=== PATIENT | male | born 1955 | race Caucasian/White ===

== ENCOUNTER 2024-01-05 01:00 | Observation (INO) | payer MEDICARE, OTHER, SELFPAY ==
[2024-01-04] MEDS: ATIVAN 1 MG IV (19:40)
[2024-01-04 19:49] LABS: Venous Blood Gas B.E. -8.4 mmol/L (-4 to +4); Venous Blood Gas HCO3 17.9 mmol/L (22-27); Venous Blood Gas O2 Sat % 61.2 %; Venous Blood Gas pCO2 39 mmHg (35-48); Venous Blood Gas pH 7.27 (7.32-7.43); Venous Blood Gas pO2 35 mmHg (30-50)
[2024-01-04 19:53] LABS: % Basophils 0.6 % (0-2); % Eosinophils 2.9 % (0-6); % Immature Granulocytes 0.6 % (0-0.5); % Lymphocytes 36.7 % (20.5-51.1); % Monocytes 7.4 % (1.7-9.3); % Neutrophils 51.8 % (42.2-75.2); Absolute Eosinophils 0.2 10^3/uL (0-0.7); Absolute Lymphocytes 2.4 10^3/uL (1.2-3.4); Absolute Monocytes 0.5 10^3/uL (0.1-0.6); Absolute Neutrophils 3.3 10^3/uL (1.4-6.5); Hematocrit 37.5 % (39.0-52.0); Hemoglobin 13.4 g/dL (13.0-18.0); Mean Corp Hgb Conc. 35.7 g/dL (33.0-37.0); Mean Corpuscular Hgb 33.2 pg (27.0-31.0); Mean Corpuscular Volume 92.8 fL (80.0-94.0); Mean Platelet Volume 10.6 fL (7.4-10.4); Nucleated Red Blood Cells % 0 % (-); Platelet Count 245 10^3/uL (130-400); Red Blood Cell Count 4.04 10^6/uL (4.70-6.10); Red Cell Dist. Width 12.9 % (11.5-14.5); White Blood Cell Count 6.5 10^3/uL (4.8-10.8)
[2024-01-04 20:00] VITALS: BP 116/72
[2024-01-04 20:08] LABS: ALT (SGPT) 25 U/L (0-50); AST (SGOT) 33 U/L (17-59); Acetaminophen < 10 ug/ml (10-30); Albumin 5.1 g/dl (3.5-5.0); Alkaline Phosphatase 130 U/L (38-126); Blood Urea Nitrogen 27 mg/dl (9-20); Calcium 10.1 mg/dl (8.4-10.2); Carbon Dioxide 15 mmol/L (22-30); Chloride 106 mmol/L (98-107); Creatine Phosphokinase 81 U/L (55-170); Glucose 174 mg/dl (70-99); Potassium 4.2 mmol/L (3.5-5.1); Salicylate < 1.0 mg/dl (2.0-20.0); Sodium 143 mmol/L (135-145); Total Bilirubin 0.7 mg/dl (0.2-1.3); eGFR > 60.00
[2024-01-04 20:11] LABS: Alcohol None Detected
[2024-01-04 20:13] LABS: Troponin I < 0.012 ng/ml
[2024-01-04 21:00] VITALS: BP 110/67
[2024-01-04 22:00] VITALS: BP 134/87
--- NOTE | 2024-01-04 22:07 | ED.GENMED ---
History of Present Illness
General
Chief Complaint: Change in Mental Status
Source: patient and ambulance crew
Exam Limitations: clinical condition
Time Seen by Provider: 01/04/24 19:35
Travel History
Have you had any contact with someone who has COVID-19?: Unable to Answer
Do you have any symptoms of coronavirus? Fever > 100 degrees, chills, cough, shortness of breath, sore throat, loss of taste or smell, muscle aches, or headache?: Unable to Answer
History of Present Illness
History of Present Illness:
68-year-old male who presents after his roommate noticed he was shaking and appeared to be seizing. He was facedown on the ground. EMS arrived and found him to be confused, combative and altered. He reportedly is normally able to converse and
make his needs known. The patient is unable to contribute to his own history. EMS did not find any further seizure activity. They did need to give him intramuscular Versed to calm him for travel. They thought they noticed a right dilated pupil
at some point
Past History
Past History
ED Past Medical History: Hypercholesterolemia, Psychiatric (Paranoid schizophrenia, major depressive disorder, Alzheimer's disease.), Other (problems with unstable gait) and Other (cholelithiasis)
ED Past Surgical History: Urological (TURP March 2023)
Social History
Tobacco: Smoker
Personal: Single
Living: assisted
Employment: Disabled
Family History
Family History: Other (Noncontributory)
Phy Exam
Physical Exam
Physical Exam:
CONSTITUTIONAL Patient somnolent but does open eyes to his name. ill-appearing. Vital signs reviewed. some L hand clinching.
HEAD atraumatic, normocephalic.
EYES eyelids normal to inspection, Pupils equally round and reactive to light (3mm b/l), Extraocular muscles intact, Conjunctiva normal, Sclera normal.
NECK normal range of motion, Trachea midline, no jugular venous distention.
RESPIRATORY CHEST No respiratory distress noted, Chest expansion equal, Bilateral breath sounds clear.
CARDIOVASCULAR regular and tachycardic.
ABDOMEN No distention.
BACK normal inspection, no obvious deformities
UPPER EXTREMITY range of motion normal, Motor strength normal, no cyanosis, no edema.
LOWER EXTREMITY range of motion normal, Motor strength normal, no cyanosis, no edema.
NEURO mumbling words, nonverbal, moves all extremities, some twitching of the left hand. Opens his eyes to his name and at times will attempt to follow commands but mostly combative
SKIN skin warm, dry, and normal in color.
Course
Orders/Labs/Results
Orders:
Orders
01/04/24 19:35
CT Head W/o Iv Contrast Urgent
Comment:
Reason For Exam: seizure, change in ms
Cardiac Monitoring- Treatment ONCE
01/04/24 19:36
Electrocardiogram (*1) Stat
Reason for Study: Other
Other Reason for Exam: neuro symptoms
EKG- Treatment ONCE
01/04/24 19:39
Lorazepam [Ativan] 2 mg .ROUTE .STK-MED ONE
01/04/24 19:42
Acetaminophen Urgent
Alcohol Urgent
CPK [Creatine Phosphokinase] Urgent
Complete Blood Count/With Diff Urgent
Comprehensive Metabolic Panel Urgent
Salicylate Urgent
Troponin I Urgent
Venous Blood Gas Urgent
%Oxygen/Room Air: RA
01/04/24 19:46
Lorazepam [Ativan] 1 mg IM NOW STA
01/04/24 19:48
Lorazepam [Ativan] 1 mg IV NOW STA
01/04/24 19:53
Restraints - Violent As Directed
Restraint Type-: Soft Limb-L&R Wrist/4rail
Apply From (date): 01/04/24
Apply from (time): 19:45
Remove (date): 01/04/24
Remove (time): 23:53
Abnormal Lab Results
01/04/24
19:42
RBC 4.04 L 10^6/uL
(4.70-6.10)
Hct 37.5 L %
(39.0-52.0)
MCH 33.2 H pg
(27.0-31.0)
MPV 10.6 H fL
(7.4-10.4)
Immature Gran % 0.6 H %
(0-0.5)
VBG pH 7.27 L
(7.32-7.43)
VBG HCO3 17.9 L mmol/L
(22-27)
Carbon Dioxide 15 L mmol/L
(22-30)
BUN 27 H mg/dl
(9-20)
Glucose 174 H mg/dl
(70-99)
Alkaline Phosphatase 130 H U/L
(38-126)
Albumin 5.1 H g/dl
(3.5-5.0)
Salicylates < 1.0 L mg/dl
(2.0-20.0)
Acetaminophen < 10 L ug/ml
(10-30)
01/04/24 19:42
01/04/24 19:42
Vital Signs
Initial and Last Documented VS:
Initial Vital Signs
Pulse Resp Pulse Ox
122 22 93
01/04/24 19:35 01/04/24 19:35 01/04/24 19:35
Last Documented Vital Signs
Temp Pulse Resp BP Pulse Ox
97.4 F 97 18 110/67 93
01/04/24 19:45 01/04/24 21:00 01/04/24 21:00 01/04/24 21:00 01/04/24 21:00
MDM/Problems Addressed
MDM/Problems Addressed:
Suspected seizure, prolonged postictal state
*Radiology
Radiology exam reviewed: preliminary read by ED provider (No obvious bleeding) and radiology read reviewed
*Pulse Oximetry
Patient hypoxic: no
*EKG
Interpreted by ED Provider?: Yes
Interpretation: abnormal
Rate: tachycardiac
Rhythm: sinus
QRS Pattern: right bundle branch block (incomplete)
Ischemia: non-specific ST changes
*[employer] Interpretation
Rate: tachycardiac
Interpretation: abnormal
Rhythm: sinus
*Critical Care Note
Total Time (30-74mins, 75-104mins- exclusive of procedures): 30 minutes
Data Reviewed
Review of Other/Old Records Reveals: Discharge Summary (from 05/14)
Source: patient
Patient Management
Discussion with other providers: Hospitalist
Escalation/DeEscalation of care consider admission/obs:
68-year-old male who presents after possible seizure. For approximately 30 to 45 minutes, the patient was altered and combative. On reassessment he is more calm and more conversant. He is now awake and alert. Question whether this was a
prolonged postictal phase. No history of seizures. Admit for close monitoring
ED Attending Note
-
Portions of this chart may have been created with voice recognition software.� Occasional wrong word or��sound alike� substitutions may have occurred due to the inherent limitations of voice recognition software.
Discharge Plan
Departure
Patient Disposition: Admit
Date of Disposition: 01/04/24
Time of Disposition: 22:18
Admit to: Telemetry
Presentation/result/management discussed w/ accepting MD/DO: Hospitalist
Discharge Problem:
possible seizure, prolonged postictal phase
Prescriptions:
No Action
gemfibrozil 600 MG tablet
600 mg PO BID@0800,1730
albuterol sulfate 1 PUFF HFA aerosol inhaler
2 puff inhalation R BIDPRN PRN (Reason: SOB)
dexlansoprazole [Dexilant] 30 MG capsule,biphase delayed releas
30 mg PO DAILY@0600
acetaminophen 325 MG tablet
650 mg PO Q4HPRN MDD 3000MG PRN (Reason: MILD PAIN/FEVER)
aspirin 81 MG tablet,delayed release (DR/EC)
81 mg PO DAILY
bisacodyl [OneLAX Bisacodyl] 10 MG suppository
10 mg [place] DAILYPRN PRN (Reason: if mom is ineffective after 24hrs)
docusate sodium 100 MG capsule
100 mg PO DAILY
clozapine 25 MG tablet
75 mg PO TID@0800,1200,1600
cholecalciferol (vitamin D3) [Vitamin D3] 400 UNITS tablet
400 units PO DAILY
tiotropium bromide [Spiriva with HandiHaler] 18 MCG capsule, w/inhalation device
1 puff inhalation R DAILY
Patient Comments:
HANDIHALER CAPSULE DEVICE
levothyroxine [Synthroid] 25 mcg Tablet
25 mcg PO DAILY@0600
calcium carbonate 400 mg calcium (1,000 mg) Tablet,Chewable
400 mg PO Q8HPRN PRN (Reason: gas)
lamotrigine 200 mg Tablet
200 mg PO DAILY
polyethylene glycol 3350 [HealthyLax] 17 gram Powder In Packet
17 g PO DAILY Qty: 30 0RF
sennosides-docusate sodium [Senna-S] 8.6-50 mg Tablet
2 tab-cap PO HS
Fleet Enema 19-7 gram/118 mL Enema
118 ml VA DAILYPRN PRN (Reason: if dulcolax is ineffective after 24hrs)
Referrals:
John Walters I., DO [Family Provider] -
Interventions
Interventions:
*Risk Screen - Suicide Last Done: 01/04/24 19:36
*General Assessment Last Done: 01/04/24 19:36
*Neglect/Abuse Screening Last Done: 01/04/24 19:36
*ED COVID-19 Vaccine History Last Done: 01/04/24 19:36
ED- Cardiac Assessment Last Done: 01/04/24 19:49
ED- Neurological Assessment Last Done: 01/04/24 19:49
ED- Pulmonary Assessment Last Done: 01/04/24 19:49
ED Swallowing Screen Last Done: 01/04/24 21:07
Discharge Date and Time
Print Language: ROMANIAN
[2024-01-04 22:23] LABS: Urine Albumin Trace (Neg - Trace); Urine Bilirubin Negative (Negative); Urine Character Clear (Clear); Urine Color Yellow; Urine Glucose Negative (Negative); Urine Ketone Negative (Negative); Urine Leukocyte Negative (Negative); Urine Nitrite Negative (Negative); Urine Occult Blood Negative (Negative); Urine Specific Gravity 1.025 (<1.030); Urine Urobilinogen Negative (Neg - 1+)
[2024-01-04 22:55] VITALS: BP 134/87
[2024-01-04 23:00] VITALS: BP 118/74
[2024-01-05] VITALS (11 sets, daily range): BP systolic 100–138; BP diastolic 69–85; PULSE 87–97; O2SAT 95; BMI 19.9
--- NOTE | 2024-01-05 00:36 | HPS.HSE ---
Family Physician
-
Family Physician: John Walters
Chief Complaint
-
Unresponsive
History of Present Illness
Patient is a 68y M with PMH significant for paranoid schizophrenia, COPD and GERD who presents to ED for evaluation of suspected seizure activity. History obtained from patient and from ED staff. Patient has no recollection of events leading up
to his hospitalization. He states that he 'came to' here in the ED. He actually has multiple concerns at present - most of which sound chronic / unrelated to his presentation. Patient was reportedly noted to be face down on the floor in his room
today by his roommate. He was reportedly 'shaking'.
EMS was called and patient was transported to the ED for further evaluation. He was described as 'unresponsive' and potential post-ictal state was suspected; however, at other times he was apparently combative and required IM Versed 'to calm him'
in the ambulance and originally was in restraints here in the ED.
At present he is resting comfortably and is not anxious or agitated.
He denies any prior history of seizure activity. He does not believe that he is on any new medications.
He has chronic complaints related to going to the bathroom and feels that he is not able to completely empty either his bowel or bladder. He notes that he has a BM every day, but apparently he feels that 3-4 bowel movements per day would be more
appropriate.
Medical History
Past Medical History
Past Medical History: Reports Other
Additional Past Medical History:
Paranoid Schizophrenia
GERD
COPD
Chronic Constipation
Hypothyroidism
Past Surgical History: Reports Other
Additional Past Surgical History:
TURP
Social History
Tobacco: Smoker
Alcohol: None
Drug: None
Living: Custodial
Family History
Family History: Not pertinent
Allergies / Home Medications
Allergies reflects when Allergies were last updated in [facility].
Home Medications with original date entered in [facility]
Allergy/Medication List:
Allergies
Allergy/AdvReac Type Severity Reaction Status Date / Time
No Known Allergies Allergy Verified 04/26/23 02:02
Home Medications
albuterol sulfate 90 mcg/actuation aerosol inhaler 2 puff inhalation R BIDPRN PRN SOB 01/03/19
dexlansoprazole 30 mg capsule,biphase delayed release (Dexilant) 30 mg PO DAILY@0600 Gastrointestinal issue 01/03/19
gemfibrozil 600 mg tablet 600 mg PO BID@0800,1730 High cholesterol 01/03/19
acetaminophen 325 mg tablet 650 mg PO Q4HPRN PRN MILD PAIN/FEVER 09/22/20
aspirin 81 mg tablet,delayed release 81 mg PO DAILY Blood clot prevention/tx 09/22/20
bisacodyl 10 mg rectal suppository (OneLAX Bisacodyl) 10 mg NV DAILYPRN PRN if mom is ineffective after 24hrs 09/22/20
cholecalciferol (vitamin D3) 10 mcg (400 unit) tablet (Vitamin D3) 400 units PO DAILY Supplement 09/22/20
clozapine 25 mg tablet 75 mg PO TID@0800,1200,1600 Mental Health/Anxiety 09/22/20
docusate sodium 100 mg capsule 100 mg PO DAILY Constipation 09/22/20
tiotropium bromide 18 mcg capsule with inhalation device (Spiriva with HandiHaler) 1 puff inhalation R DAILY Lung/breathing issues 09/22/20
calcium carbonate 400 mg PO Q8HPRN PRN gas 03/25/23
levothyroxine 25 mcg tablet (Synthroid) 25 mcg PO DAILY@0600 Thyroid 03/25/23
lamotrigine 200 mg tablet 200 mg PO DAILY Neurological Condition 04/26/23
polyethylene glycol 3350 17 gram oral powder packet (HealthyLax) 17 g PO DAILY #30 ea 05/02/23
sennosides 8.6 mg-docusate sodium 50 mg tablet (Senna-S) 2 tab-cap PO HS 01/04/24
sodium phosphates 19 gram-7 gram/118 mL enema (Fleet Enema) 118 ml NV DAILYPRN PRN if dulcolax is ineffective after 24hrs 01/04/24
Review of Systems
-
History Source: Patient
A 12 point ROS was completed and negative except as noted: Yes
Constitutional: Denies Fever or Chills
Respiratory: Denies Cough or Trouble Breathing
Cardiac: Denies Chest Pain or Palpitations
Abdomen/GI: Reports Constipated; Denies Abdominal Pain, Nausea, Vomiting, Bloody Stools, Black Stools or Anorexia
: Reports Difficulty Voiding; Denies Dysuria, Frequency or Flank Pain
Musculoskeletal: Denies Joint Pain or Edema
Neurological: Denies Dizzy or Headache
Physical Exam
Vital Signs
Vital Signs
Temp Pulse Resp BP Pulse Ox
98.3 F 96 21 119/76 95
01/04/24 22:55 01/05/24 00:16 01/05/24 00:16 01/05/24 00:00 01/05/24 00:20
Physical Exam
General: Other (68y M in no acute distress.)
HEENT: Moist mucous membranes and PERRLA
Respiratory: Clear; No Wheezes, Rales or Rhonchi
Cardiac: S1/S2 and Regular Rhythm; No Murmur
GI: Soft, Non Tender, Non Distended and Normal Bowel Sounds
Musculoskeletal: No Clubbing, No Cyanosis and No Edema
Neuro: AO x 3 and Nonfocal/grossly intact
Laboratory Results
-
01/04/24 19:42
01/04/24 19:42
Laboratory Results
Total Bilirubin 0.7 mg/dl (0.2-1.3) 01/04/24 19:42
AST 33 U/L (17-59) 01/04/24 19:42
ALT 25 U/L (0-50) 01/04/24 19:42
Alkaline Phosphatase 130 U/L (38-126) H 01/04/24 19:42
Troponin I < 0.012 ng/ml 01/04/24 19:42
Impression/Plan
-
A/P: Patient is a 68y M with PMH significant for paranoid schizophrenia, hypothyroidism and GERD who presents to ED for evaluation of unresponsive episode / possible seizure activity.
Seizure Activity
Anion Gap Metabolic Acidosis
- Observe overnight for further evaluation and treatment.
- Seems likely that a seizure occurred based on history and accompanying lab abnormalities.
- Monitor on tele overnight.
- Ativan PRN any additional seizure activity.
- Neuro eval, MRI, EEG in AM.
- No apparent new med[facility].
- Patient denies any prior history of seizure.
- If recurrent episodes, would likely begin AEDs.
Paranoid Schizophrenia
- Stable. Continue current psychotropic med regimen.
- Per [facility], no new meds or recent dose changes.
- Follow for any new issues / mood changes / etc.
- Suspect that many of his chronic med issues are related to / amplified by his mental health issues.
Chronic Constipation
- As noted above. Does not sound that patient is truly constipated.
- Continue current bowel regimen and follow for any changes.
Hypothyroidism
- Continue current T4 replacement and update TFTs.
COPD
- Stable. No wheezing on exam. No complaints of dyspnea.
- Continue Spiriva and PRN albuterol.
BPH
- Bladder scan protocol.
DVT Prophylaxis: SCDs
Code Status: Full
--- NOTE | 2024-01-05 02:13 | PTCARENOTE ---
Received from the ED via stretcher, pt is a standby assist, mildly unsteady on his feet. Pt is AAOx3, does not recall the events that led him in to the hospital. Pt with a hx of schizophrenia; impulsive and uncooperative @ times, but able to be
redirected, talks to himself frequently. Bed alarm in place for safety. Pt is a poor historian, admission obtained from [place] paperwork. Pt oriented to unit and call jarrett, plan for MRI in the AM and NPO status discussed. Pt resting comfortably in bed.
[2024-01-05 05:25] LABS: Hematocrit 34.9 % (39.0-52.0); Hemoglobin 12.6 g/dL (13.0-18.0); Mean Corp Hgb Conc. 36.1 g/dL (33.0-37.0); Mean Corpuscular Volume 91.4 fL (80.0-94.0); Mean Platelet Volume 10.6 fL (7.4-10.4); Platelet Count 220 10^3/uL (130-400); Red Blood Cell Count 3.82 10^6/uL (4.70-6.10); Red Cell Dist. Width 12.7 % (11.5-14.5); White Blood Cell Count 8.7 10^3/uL (4.8-10.8)
[2024-01-05 06:00] LABS: Blood Urea Nitrogen 30 mg/dl (9-20); Calcium 9.9 mg/dl (8.4-10.2); Carbon Dioxide 18 mmol/L (22-30); Chloride 110 mmol/L (98-107); Estimated Creatinine Clearance 76 ml/min; Glucose 98 mg/dl (70-99); Potassium 3.6 mmol/L (3.5-5.1); Sodium 142 mmol/L (135-145); eGFR > 60.00
[2024-01-05 06:27] LABS: TSH Reflex To Free T4 3.29 uIU/ml (0.47-4.68)
[2024-01-05] MEDS: SYNTHROID 25 MCG PO (06:36)
[2024-01-05] MEDS: SPIRIVA RESPIMAT 2.5 MCG 2 PUFF INH (08:08)
--- NOTE | 2024-01-05 08:15 | CON.NEURO4 ---
Addendum entered and electronically signed by Nestor Dinh MD 01/05/24 12:44:
I saw and evaluate the patient I reviewed the note by Johanna Gomez agree with the findings of following comments:
68-year-old male with a past medical history of undifferentiated schizophrenia, cognitive dysfunction, hyperlipidemia, COPD and hypothyroidism who presented to hospital with episode of abnormal movement and mental status concerning for potential
generalized seizure. This had been observed by patient's roommate he had been found laying face down in his room by roommate with convulsive movements which spontaneously abated, afterwards he was confused with some agitation and did require some
benzodiazepines as well as ER.
Patient does not recall the events of yesterday he does deny after having had a seizure in his life with no family history of seizures as well. He denies any recreational use of drugs or any alcohol use. He reports being on Clazuril since the
.
He has had evaluation by psychiatry before he was taken off Perphenazine. He has had evaluation by neurology previously, was felt to have some dyskinetic movements due to history of antipsychotics, eventually had neuropsychological testing who felt
that he did not have Alzheimer's dementia but rather cognitive changes and executive dysfunction from history of schizophrenia. Has had previous levels of Clazuril here in our hospital which were in therapeutic range.
General examination shows a patient who is in no distress no signs of head or neck trauma no tongue laceration, mildly disheveled with thin appearing body habitus
Neurologic examination shows no overt hallucinations or responding to internal stimuli his speech is of normal pace and is fluent, comprehension is intact, decreased recall of recent events as well as his past medical history is apparent, no
abnormalities of the cranial nerves, no significant rigidity seen in the limbs.
CT head noncontrast no remarkable features
EEG is normal.
Assessment: Fair likelihood of a generalized seizure, it appears to be the first seizure ever in this patient. Differential diagnosis would include convulsive syncope or less likely nonepileptic psychogenic seizure . Patient is on clozapine which
does result in a small but real increased risk of seizure, he is on a relatively low dose but did have therapeutic levels on most recent blood testing levels. No history of previous seizure and CT head not showing any significant structural
abnormalities. No infectious or metabolic abnormalities are present that would predispose to seizure. Benign cause of pain does present a challenge as coming off of it would risk reemergence of psychotic symptoms.
Recommendations
-Would prefer to increase the existing dose of lamotrigine which may offer better protection against seizure rather than brand-name seizure medication for the patient
--- Increase lamotrigine to 250 mg once daily
-Would continue the existing dose of Clozapine
-Check blood levels of lamotrigine as well as clozapine as well as clozapine metabolites
-If further seizures occur then would need to have serious reconsideration of decreasing the dose of clozapine or switching to a different antipsychotic medication
-Would make patient's psychiatrist or prescribing physician aware of suspected seizure
-With a normal CT head noncontrast and neurologic examination remarkable for only has baseline issues of cognitive impairment/executive dysfunction and history of schizophrenia I do not feel he would necessarily require inpatient brain MRI as it is
extremely unlikely to change any of our management here
-Will need outpatient neurology and psychiatry following
Original Note:
Consultation - Neurology 4
-
CONSULTING PHYSICIAN: Madeline Dinh MD
REFERRING PHYSICIAN: Hospitalists/Dr. Negro
DICTATED BY: SOHEILA Foote
DATE/TIME OF REQUEST: 01/04/24
DATE/TIME OF CONSULTATION: 01/05/24
Reason for Consultation: Seizure
History of Present Illness:
This is a 68-year-old male with a PMH of schizophrenia, memory loss, ambulatory dysfunction, BPH, HLD, COPD, and hypothyroidism who has presented to the hospital on 01/04/24 with report of seizure. Patient was previously followed as an outpatient by
our Neurology service for memory issues and movement disorder by Dr. Chen and Dr. Lundy, but he has not had an office visit since 2020.
From previous evaluation by Dr. Chen on an unclear date, as quoted in Dr. Lundy's OV note on 04/24/21:
''From previous encounters, when seen by Dr. Chen:�������
'This is a 66 years old gentleman presented for evaluation of gait difficulty. Patient was referred by Dr. Latonia Lundy.������
Patient reported that he might have mild gait difficulty with knee pain in the past. However he denies difficulty with gait or balance recently. Patient also denies difficulty with balance and he has had no falls recently. Patient is poor with
historian due to long history of psychiatric disease. Part of the history was collected with patient caregiver director and confirmed that that patient has no gait difficulties at his facilities currently. He reported that he has tremor in his hands
when he is in stress and anxious. He denies tremor when he is relaxed.�������Patient reported that his main issues is memory loss. He reported that he has both short-term and long-term memory difficulties. He is not able to remember the conversation
and tasks. He has to keep taking notes. At his last visit with Dr. Lundy, he was suggested dementia workup with labs, brain MRI and neuropsych evaluation. However none of them were performed. He denies hallucinations.�������
No history of head trauma or seizure. No family history of AD or dementia. No change in personality. He hs a history of depression, paranoid schizophrenia and bipolar disorder.�������
He had a head CT done at [facility] in March 2017, his most recent imaging that we had available for review, which showed no significant focal findings. '������
01/21/21: MRI brain showed mild to moderate diffuse atrophy with minimal white matter hyperintensities likely due to small vessel ischemic disease. His aide states that he often exhibits repetitive behaviors--washing his hands continually, going in
and out of the bathroom but not using it, etc. He is at times aggressive and agitated. He carries around a miror with him 'so he can look at himself to see if he's standing up.' The patient complains of ongoing memory loss. He does not recall having
his MRI done. He saw Dr. Chen since I saw him last who felt he does not have PD or any other movement disorder.''
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
Patient is unable to recall the events of yesterday, therefore some of this information is obtained from medical records. He reports feeling well the past few days and denies any recent illness, fevers, or GI symptoms. [facility]
and reports that nursing staff administers his medications and he has been taking them regularly. He reports being on Clozaril since about 1989, he cannot recall how long he has been taking lamotrigine but he is taking this for mental health
reasons. Yesterday (01/04/24), patient was found in his room lying face-down on the ground with whole-body shaking by his roommate. EMS were called and patient was noted to be confused and combative but no further seizure activity was noted. He
received IM Versed en route to the ER due to agitation. CT head was obtained on arrival in the ER and is negative for any acute abnormalities. Blood work is significant for metabolic acidosis. There was no tongue biting, or incontinence of
bowel/bladder observed. Today (01/05/24), patient reports feeling drowsy but otherwise feels in his usual state. He denies any headache, dizziness, vision changes, speech/swallow difficulty, numbness, weakness, nausea, chest pain, palpitations, and
shortness of breath. He denies any history of head/neck trauma or seizure.
Past Medical History: Paranoid schizophrenia, bipolar disorder, major depression, memory loss, ambulatory dysfunction, COPD, BPH, HLD, GERD, hypothyroidism
Surgical History: TURP
Family History: Sibling- brain tumor. Denies any family history of seizure.
Social History: Former smoker. Denies alcohol and illicit drug use.
Allergies: No known allergies.
Home Medications: See below.
Review of Symptoms:
Patient denies any fever, headache, chest pain, shortness of breath, GI or symptoms.
�Per the HPI.�All systems are reviewed negative except above.
Physical Exam:
The patient is afebrile, abdomen is nondistended, breathing is unlabored, skin is warm and dry, no edema.
Neurologic Examination:
The patient is drowsy. He opens eyes to voice. Oriented x 3. He is able to follow commands and answer questions appropriately. There is no aphasia or dysarthria. On cranial nerve assessment, pupils are 1 mm bilateral, round and nonreactive to light
and accommodation. Visual massey are full. Extraocular movements are intact. Facial sensations are intact and bilaterally symmetrical, there is no facial asymmetry. Hearing is diminished bilaterally to normal conversation volume. Tongue palate and
uvula are midline. There is no tongue laceration. Sternocleidomastoid strengths are full bilaterally. Motor strengths are 5/5 bilateral upper and lower extremities on medical research Sears scale. There is no drift. There is a low amplitude semi
rhythmic tremor in the distal RUE with exertion. Deep tendon reflexes are 2+ bilateral upper and lower extremities and Babinski is absent bilaterally. Coordination is intact by finger to nose bilaterally.
Lab Results: See below.
Neuro Imaging:
1. CT Head 01/04/24:
2. EEG 01/05/24: This EEG is normal during the awake and drowsy states as well as during the activation procedure of photic stimulation. No seizures were noted during the recording. The study was limited by movement and muscle artifact at times,
during which time epileptiform abnormalities cannot be definitively ruled out.
3. MRI brain 12/01/20: No evidence of acute intracranial abnormality.
Differentials for the patient's presentation include:
1. New onset generalized seizure without status epilepticus, well-controlled. Unclear etiology, Clozaril is associated with a very slight seizure risk.
Patient has the following risk factors for their symptoms: Clozaril
Recommendations:
-Lamotrigine and Clozaril levels pending.
-Home lamotrigine 200mg daily increased to 250mg daily.
-Do not see a role for MRI brain imaging at this point, can obtain this as an outpatient if needed.
-If further seizures occur, can consider adjusting schizophrenia medications at that time, but for now would continue chronic Cloazaril.
-DVT prophylaxis.
-Seizure precautions.
-PT/OT evaluations.
Discussed patient care with: Dr. Dinh, the patient
Vital Signs and Labs
-
Vital Signs and Labs:
Vital Signs
Temp Pulse Resp BP Pulse Ox
98 F 76 14 131/75 97
01/05/24 07:50 01/05/24 08:11 01/05/24 08:11 01/05/24 07:50 01/05/24 08:11
Lab Results
01/05/24 04:57
01/05/24 04:57
Sodium 142 mmol/L (135-145) 01/05/24 04:57
Potassium 3.6 mmol/L (3.5-5.1) 01/05/24 04:57
BUN 30 mg/dl (9-20) H 01/05/24 04:57
Glucose 98 mg/dl (70-99) 01/05/24 04:57
Calcium 9.9 mg/dl (8.4-10.2) 01/05/24 04:57
Medications
-
Active Medications
Generic Name Dose Route Start Last Admin
Trade Name Freq PRN Reason Stop Dose Admin
Acetaminophen 650 mg 01/05/24 01:14
Acetaminophen 325 Mg Tablet PO 02/02/24 01:13
Q4HPRN PRN
Mild Pain / Temp > 101
Albuterol Sulfate 2.5 mg 01/05/24 01:14
Albuterol Nebs 2.5 Mg/3 Ml Ampul INH
R Q4HPRN PRN
shortness of breath
Protocol
Clozapine 75 mg 01/05/24 08:00 01/05/24 09:19
Clozapine 25 Mg Tablet PO 02/02/24 07:59 75 mg
TID@0800,1200,1600 LEONARDO Administration
Docusate Sodium 100 mg 01/05/24 08:00 01/05/24 09:13
Docusate Sodium 100 Mg Capsule PO 02/02/24 07:59 100 mg
BID LEONARDO Administration
Lamotrigine 250 mg 01/06/24 08:00
Lamotrigine 100 Mg Tablet PO 02/03/24 07:59
DAILY LEONARDO
Levothyroxine Sodium 25 mcg 01/05/24 06:00 01/05/24 06:36
Levothyroxine 25 Mcg Tablet PO 02/02/24 05:59 25 mcg
DAILY@0600 LEONARDO Administration
Lorazepam 1 mg 01/05/24 01:14
Lorazepam 2 Mg/Ml Vial IV 02/02/24 01:13
Q4HPRN PRN
Seizure activity
Pantoprazole Sodium 40 mg 01/05/24 08:00 01/05/24 09:12
Pantoprazole 40 Mg Delayed Release Tablet PO 02/02/24 07:59 40 mg
DAILY LEONARDO Administration
Polyethylene Glycol 17 grams 01/05/24 08:00 01/05/24 09:13
Polyethylene Glycol Powder 17 Grams Packet PO 02/02/24 07:59 17 grams
DAILY LEONARDO Administration
Sennosides 17.2 mg 01/05/24 22:00
Sennosides (Senokot) 8.6 Mg Tablet PO 02/02/24 21:59
HS LEONARDO
Sodium Chloride 0 flush 01/05/24 02:00
Sodium Chloride 0.9% (Flush) Syringe IV 02/02/24 01:59
PER PROTOCOL LEONARDO
Tiotropium Galloway 2 puff 01/05/24 08:00 01/05/24 08:08
Tiotropium (Spiriva Respimat) 2.5 Mcg Inhaler INH 02/02/24 07:59 2 puff
R DAILY LEONARDO Administration
Home Medications
�Medication �Instructions �Recorded
albuterol sulfate 90 mcg/actuation 2 puff inhalation R BIDPRN PRN SOB 01/03/19
aerosol inhaler
dexlansoprazole 30 mg 30 mg PO DAILY@0600 01/03/19
capsule,biphase delayed release Gastrointestinal issue
(Dexilant)
gemfibrozil 600 mg tablet 600 mg PO BID@0800,1730 High 01/03/19
cholesterol
acetaminophen 325 mg tablet 650 mg PO Q4HPRN PRN MILD 09/22/20
PAIN/FEVER
aspirin 81 mg tablet,delayed 81 mg PO DAILY Blood clot 09/22/20
release prevention/tx
bisacodyl 10 mg rectal suppository 10 mg ID DAILYPRN PRN if mom is 09/22/20
(OneLAX Bisacodyl) ineffective after 24hrs
cholecalciferol (vitamin D3) 10 400 units PO DAILY Supplement 09/22/20
mcg (400 unit) tablet (Vitamin D3)
clozapine 25 mg tablet 75 mg PO TID@0800,1200,1600 Mental 09/22/20
Health/Anxiety
docusate sodium 100 mg capsule 100 mg PO DAILY Constipation 09/22/20
tiotropium bromide 18 mcg capsule 1 puff inhalation R DAILY 09/22/20
with inhalation device (Spiriva Lung/breathing issues
with HandiHaler)
calcium carbonate 400 mg PO Q8HPRN PRN gas 03/25/23
levothyroxine 25 mcg tablet 25 mcg PO DAILY@0600 Thyroid 03/25/23
(Synthroid)
lamotrigine 200 mg tablet 200 mg PO DAILY Neurological 04/26/23
Condition
polyethylene glycol 3350 17 gram 17 g PO DAILY #30 ea 05/02/23
oral powder packet (HealthyLax)
sennosides 8.6 mg-docusate sodium 2 tab-cap PO HS constipation 01/04/24
50 mg tablet (Senna-S)
sodium phosphates 19 gram-7 118 ml ID DAILYPRN PRN if dulcolax 01/04/24
gram/118 mL enema (Fleet Enema) is ineffective after 24hrs
[2024-01-05] MEDS: PROTONIX 40 MG PO (09:12)
[2024-01-05] MEDS: LAMICTAL 200 MG PO (09:13)
[2024-01-05] MEDS: MIRALAX 17 GRAMS PO (09:13)
[2024-01-05] MEDS: COLACE 100 MG PO ×2 (09:13→20:37)
[2024-01-05] MEDS: CLOZARIL 75 MG PO ×3 (09:19→17:09)
--- NOTE | 2024-01-05 09:47 | EEG.RPT ---
Electroencephalogram Report
Recording
Date of EE01/05/24
Type of EEG: Routine
Length of EEG recordin minutes
Done with Video Recording: Yes
Patient Status: Inpatient
Recording Conditions: Awake and Drowsy
Hyperventilation Performed: No
Photic Stimulation Performed: Yes
Report
METHODS
A 21 channel digitized electroencephalogram was performed at [facility]. The 10/20 international system of electrode placement was used. In addition to EEG, the patient was monitored for EKG. The duration of the recording was 30 minutes.
BACKGROUND
During the awake state, with the eyes closed, the background consisted of a normal amplitude, 9 Hertz posterior reactive rhythm that attenuated appropriately with eye opening. Beta activity was distributed diffusely with an anterior predominance.
There was a normal anterior-posterior voltage gradient. With eye opening the background activity changed to a low voltage mixture of alpha, beta, and occasional theta range frequencies. There were no significant asymmetries of background activity
noted.
SLEEP
Stage II sleep was not obtained but the patient did become drowsy.
HYPERVENTILATION
Hyperventilation was not performed.
PHOTIC STIMULATION
Photic stimulation using a step-marks increase in photic frequency varying from 1-31 Hertz resulted in no driving responses but no appearance of abnormal activity.
ABNORMAL EEG ACTIVITY
None
CLINICAL EVENTS
None
INTERPRETATION AND CLINICAL CORRELATION
This EEG is normal during the awake and drowsy states as well as during the activation procedure of photic stimulation. No seizures were noted during the recording. The study was limited by movement and muscle artifact at times, during which time
epileptiform abnormalities cannot be definitively ruled out. A normal EEG, in itself, does not rule out a diagnosis of epilepsy. If clinical suspicion for seizure persists, a sleep-deprived and/or prolonged recording may be warranted.
--- NOTE | 2024-01-05 10:03 | W.PN.HOSP.TC ---
Today's Communication/Plan
-
.
Assessment / Plan
Assessment / Plan
Physical Exam
-
General: not in respiratory distress
HEENT: Normocephalic and Other (poor oral health)
Respiratory: Clear to Auscultation
Cardiac: Regular Rhythm
Abdomen: non tender.
Genito-urinary: no hematuria, no Nichole.
neurology: Awake, alert, followed commands.
Psych: no agitation.
Patient is a 68y M with PMH significant for paranoid schizophrenia, hypothyroidism and GERD who presented to ED for evaluation of unresponsive episode / possible seizure activity.
Seizure Activity
Anion Gap Metabolic Acidosis
- No recurrent seizures over night.
- Seems likely that a seizure occurred based on history and accompanying lab abnormalities.
- Ativan PRN any additional seizure activity.
- MRI, EEG in AM.
- No apparent new meds per [facility] record.
- Patient denied any prior history of seizure.
- Appreciate neurology help
#BPH:
Serial bladder scans for urinary retention is normal.
- Continue Flomax, Tolterodine
#Schizophrenia, bipolar disorder:
- He is not agitated.
- Lamotrigine continued. Clozaril continued.
- EKG today 04/30 showed normal QTC interval
#Chronic constipation:
- Continue bowel regimen
#Hypothyroidism
Continue levothyroxine
#Hyperlipidemia
# Cachexia/ underweight with BMI of 19
Anticipated Discharge: 24 - 48 hours
Subjective/Interval History
-
Date of Service: January 05, 2024
Objective Data
-
Labs:
Laboratory Results
01/05/24
04:57
WBC 8.7
Hgb 12.6 L
Hct 34.9 L
Plt Count 220
Sodium 142
Potassium 3.6
Chloride 110 H
Carbon Dioxide 18 L
BUN 30 H
Creatinine 0.8
Glucose 98
Calcium 9.9
Vital Signs:
Vital Signs
Temp Pulse Resp BP Pulse Ox
98 F 76 14 131/75 97
01/05/24 07:50 01/05/24 08:11 01/05/24 08:11 01/05/24 07:50 01/05/24 08:11
--- NOTE | 2024-01-05 11:38 | PTOTSP ---
pt currently demonstrates ability to complete simple ADLs, functional transfers, ambulation with supervision assistance. no acute OT needs identified, will sign off.
--- NOTE | 2024-01-05 13:56 | CM ---
Reviewed the chart notes and spoke with the patient at the bedside. LI letter provided and explained. The patient had no questions with regards to the letter. The patient is a senior care resident of [facility] (2020). The patient
ambulates without any assistive devices. The patient anticipates being discharged back to [facility] once medically stable. CM continues to be available to patient/family and is monitoring medical plan for needs at discharge.
Plan: Discharge back to [facility] when medically stable.
[2024-01-05] MEDS: SENOKOT 17.1999999999999993 MG PO (20:37)
[2024-01-06] VITALS (7 sets, daily range): BP systolic 95–142; BP diastolic 66–78; PULSE 93–107; BMI 19.8
[2024-01-06] MEDS: TYLENOL 650 MG PO (02:26)
[2024-01-06] MEDS: SYNTHROID 25 MCG PO (06:24)
[2024-01-06] MEDS: SPIRIVA RESPIMAT 2.5 MCG INH (07:51)
[2024-01-06] MEDS: PROTONIX 40 MG PO (08:26)
[2024-01-06] MEDS: COLACE 100 MG PO ×2 (08:26→21:30)
[2024-01-06] MEDS: LAMICTAL 250 MG PO (08:26)
[2024-01-06] MEDS: CLOZARIL 75 MG PO ×3 (08:26→17:11)
[2024-01-06] MEDS: MIRALAX 17 GRAMS PO (08:26)
[2024-01-06] MEDS: VITAMIN B1 100 MG PO (10:07)
--- NOTE | 2024-01-06 10:38 | CM ---
Reviewed the chart notes.
Plan: Discharge back to [facility] when medically stable.
Call report to: ([phone])
Fax report to: [phone])
Medical necessity and transport forms on chart.
--- NOTE | 2024-01-06 16:42 | W.PN.HOSP.TC ---
Today's Communication/Plan
-
.
Assessment / Plan
Assessment / Plan
Physical Exam
-
General: not in respiratory distress
HEENT: Normocephalic and Other (poor oral health)
Respiratory: Clear to Auscultation
Cardiac: Regular Rhythm
Abdomen: non tender.
Genito-urinary: no hematuria, no Nichole.
neurology: Awake, alert, followed commands.
Psych: no agitation.
Patient is a 68y M with PMH significant for paranoid schizophrenia, hypothyroidism and GERD who presented to ED for evaluation of unresponsive episode / possible seizure activity.
Seizure Activity
Anion Gap Metabolic Acidosis
- No recurrent seizures over night.
- Seems likely that a seizure occurred based on history and accompanying lab abnormalities.
- Ativan PRN any additional seizure activity.
- MRI, EEG in AM.
- No apparent new meds per [facility] record.
- Patient denied any prior history of seizure.
d/w psychiatry, ok to increase dose of Lamictal slowly
- Appreciate neurology help
#BPH:
Serial bladder scans for urinary retention is normal.
- Continue Flomax, Tolterodine
#Schizophrenia, bipolar disorder:
- He is not agitated.
- Lamotrigine continued. Clozaril continued.
- EKG today 04/30 showed normal QTC interval
#Chronic constipation:
- Continue bowel regimen
#Hypothyroidism
Continue levothyroxine
#Hyperlipidemia
# Cachexia/ underweight with BMI of 19
Total time spent to see the patient, examine the patient on the floor, review data and lab results, discuss treatment plan with patient, neurologist, psych doctor, brother of the patient, and nursing staff around 55 minutes
Anticipated Discharge: Within 24 hours
Subjective/Interval History
-
Date of Service: January 06, 2024
No chest pain
No sob
Objective Data
-
Vital Signs:
Vital Signs
Temp Pulse Resp BP Pulse Ox
97.8 F 93 16 95/66 96
01/06/24 15:57 01/06/24 15:57 01/06/24 15:57 01/06/24 15:57 01/06/24 15:57
I&O
01/05/24 01/06/24 01/07/24
06:59 06:59 06:59
Intake Total 1680 / 1680 1050 / 1050
Output Total 500 / 500
Balance 1180 / 1180 1050 / 1050
[2024-01-06] MEDS: SENOKOT 17.1999999999999993 MG PO (21:30)
[2024-01-07 03:52] VITALS: BP 108/51
[2024-01-07] MEDS: SYNTHROID 25 MCG PO (05:21)
[2024-01-07 06:57] LABS: Lamotrigine (Lamictal) <0.9 ug/mL (3.0-15.0)
[2024-01-07 07:50] VITALS: BP 113/71
[2024-01-07] MEDS: SPIRIVA RESPIMAT 2.5 MCG 2 PUFF INH (08:38)
[2024-01-07] MEDS: LAMICTAL 250 MG PO (08:53)
[2024-01-07] MEDS: COLACE 100 MG PO (08:55)
[2024-01-07] MEDS: CLOZARIL 75 MG PO (08:55)
[2024-01-07] MEDS: PROTONIX 40 MG PO (08:55)
[2024-01-07] MEDS: VITAMIN B1 100 MG PO (08:55)
[2024-01-07] MEDS: MIRALAX 17 GRAMS PO (08:55)
--- NOTE | 2024-01-07 09:29 | W.DCSUMMARY ---
Discharge Summary
Discharge Data
Date of Admission: 01/05/24
Date of Discharge: 01/07/24
-
Pending Results: No
Hospital Course
68 years old male presented to the hospital with an episode of abnormal movement and change in mental status concerning for potential generalized seizure. This was observed by patient's roommate. After that episode, patient became confused with
some agitation and required benzodiazepine treatment in the emergency room. Patient was not able to recall the event. He denied use of recreational drugs or any alcohol use. Patient was evaluated by neurologist. Imaging studies of the head did
not show acute findings. Electroencephalogram was normal. Neurologist agreed with possibility of generalized seizure. No infectious or metabolic abnormalities were present. Lamotrigine dose was increased from 200 mg 250 mg. Patient was observed
in the hospital without recurrent of seizure or confusion. He had normal neurologic examination other than baseline issues of cognitive impairment. Patient remained hemodynamically stable and was [facility] to [facility] in a stable
condition to follow-up with neurology in the office. Discharge recommendations were given to his brother.
Physical Exam
-
General: not in respiratory distress
HEENT: Normocephalic and Other (poor oral health)
Respiratory: Clear to Auscultation
Cardiac: Regular Rhythm
Abdomen: non tender.
Genito-urinary: no hematuria, no Nichole.
neurology: Awake, alert, followed commands.
Psych: no agitation.
Total discharge time spent to see the patient, examine the patient on the floor, review data and lab results, discuss discharge plan with patient and nursing staff around 65 minutes
Discharge Plan
-
Patient Disposition: Usp/SNF
Discharge Diagnosis/Procedures: Newly diagnosed seizure disorder. Seen by neurologist, increase dose of Lamictal. Will need neurology follow up.
Diet: As tolerated
Referrals:
John Walters I., DO [Family Provider] - in one to two weeks
Jonathan Oconnor MD [Active] - in one month
Prescriptions:
New
thiamine HCl (vitamin B1) 100 mg Tablet
100 mg PO DAILY Qty: 30 0RF
lamotrigine 100 mg Tablet
250 mg PO DAILY Qty: 30 0RF
Continued
gemfibrozil 600 MG tablet
600 mg PO BID@0800,1730
albuterol sulfate 1 PUFF HFA aerosol inhaler
2 puff inhalation R BIDPRN PRN (Reason: SOB)
dexlansoprazole [Dexilant] 30 MG capsule,biphase delayed releas
30 mg PO DAILY@0600
acetaminophen 325 MG tablet
650 mg PO Q4HPRN MDD 3000MG PRN (Reason: MILD PAIN/FEVER)
aspirin 81 MG tablet,delayed release (DR/EC)
81 mg PO DAILY
bisacodyl [OneLAX Bisacodyl] 10 MG suppository
10 mg [place] DAILYPRN PRN (Reason: if mom is ineffective after 24hrs)
docusate sodium 100 MG capsule
100 mg PO DAILY
clozapine 25 MG tablet
75 mg PO TID@0800,1200,1600
cholecalciferol (vitamin D3) [Vitamin D3] 400 UNITS tablet
400 units PO DAILY
tiotropium bromide [Spiriva with HandiHaler] 18 MCG capsule, w/inhalation device
1 puff inhalation R DAILY
Patient Comments:
HANDIHALER CAPSULE DEVICE
levothyroxine [Synthroid] 25 mcg Tablet
25 mcg PO DAILY@0600
calcium carbonate 400 mg calcium (1,000 mg) Tablet,Chewable
400 mg PO Q8HPRN PRN (Reason: gas)
polyethylene glycol 3350 [HealthyLax] 17 gram Powder In Packet
17 g PO DAILY Qty: 30 0RF
sennosides-docusate sodium [Senna-S] 8.6-50 mg Tablet
2 tab-cap PO HS
Fleet Enema 19-7 gram/118 mL Enema
118 ml [place] DAILYPRN PRN (Reason: if dulcolax is ineffective after 24hrs)
Discontinued
lamotrigine 200 mg Tablet
200 mg PO DAILY
Discharge Orders:
Discharge Patient (As Directed); Ordered 01/07/24
Ordered By: Catia Baugh
Discharge Date and Time
Discharge Date/Time: 01/07/24 10:59
Print Language: CENTRAL AFRICAN
--- NOTE | 2024-01-07 10:06 | CM ---
CM following re: d/c planning.
D/c today.
D/c plan is for pt to return to [facility].
Call placed to [facility] in admissions to notify time of transport 1100.
Call report to: ([phone])
Fax report to: ([phone])
Medical necessity and transport forms on chart.
Goal: return to [facility].
[2024-01-08 16:37] LABS: Clozapine, Quantitative <100 ng/mL; Clozapine-N-Oxide,Quantitative <100 ng/mL; Norclozapine, Quantitative 295 ng/mL; Total Clozapine & Metabolites 295 ng/mL (<=1500)
== END 2024-01-07 10:59 ==
LOC: 2 NORTH 01:00
PROVIDERS: ADMITTING PHYSICIAN Hospitalist; ATTENDING PHYSICIAN Internal Medicine; EMERGENCY PHYSICIAN Emergency Medicine; FAMILY PHYSICIAN Internal Medicine; OTHER PHYSICIAN Student in an Organized Health Care Education/Training Program
DX: G40.909 Epilepsy, unspecified, not intractable, without status epilepticus (principal); R41.82 Altered mental status, unspecified; F31.9 Bipolar disorder, unspecified; F20.0 Paranoid schizophrenia; E78.00 Pure hypercholesterolemia, unspecified; F17.200 Nicotine dependence, unspecified, uncomplicated; K21.9 Gastro-esophageal reflux disease without esophagitis; J44.9 Chronic obstructive pulmonary disease, unspecified; K59.09 Other constipation; E03.9 Hypothyroidism, unspecified; E87.20 Acidosis, unspecified; N40.0 Benign prostatic hyperplasia without lower urinary tract symptoms; R64 Cachexia; Z90.79 Acquired absence of other genital organ(s); Z79.82 Long term (current) use of aspirin; Z79.890 Hormone replacement therapy; Z68.1 Body mass index [BMI] 19.9 or less, adult
CPT/HCPCS: 70450; 80048; 80053; 80143; 80159; 80175; 80179; 81003; 82077; 82550; 82805; 84443; 84484; 85025; 85027; 87070; 93005; 94640; 95816; 96372; 96374; 97161; 97166; 99291

== ENCOUNTER 2024-09-20 08:49 | Emergency (ER) | payer OTHER, SELFPAY ==
[2024-09-20 09:11] VITALS: BP 121/78
[2024-09-20 09:58] LABS: % Basophils 0.4 % (0-2); % Eosinophils 1.7 % (0-6); % Immature Granulocytes 0.6 % (0-0.5); % Lymphocytes 26.6 % (20.5-51.1); % Monocytes 6.3 % (1.7-9.3); % Neutrophils 64.4 % (42.2-75.2); Absolute Eosinophils 0.1 10^3/uL (0-0.7); Absolute Lymphocytes 1.2 10^3/uL (1.2-3.4); Absolute Monocytes 0.3 10^3/uL (0.1-0.6); Hematocrit 36.7 % (39.0-52.0); Hemoglobin 12.9 g/dL (13.0-18.0); Mean Corp Hgb Conc. 35.1 g/dL (33.0-37.0); Mean Corpuscular Hgb 33.3 pg (27.0-31.0); Mean Corpuscular Volume 94.8 fL (80.0-94.0); Mean Platelet Volume 10.9 fL (7.4-10.4); Nucleated Red Blood Cells % 0 % (-); Platelet Count 216 10^3/uL (130-400); Red Blood Cell Count 3.87 10^6/uL (4.70-6.10); Red Cell Dist. Width 13.2 % (11.5-14.5); White Blood Cell Count 4.6 10^3/uL (4.8-10.8)
[2024-09-20 10:01] LABS: ALT (SGPT) 25 U/L (0-50); AST (SGOT) 33 U/L (17-59); Albumin 5.1 g/dl (3.5-5.0); Alkaline Phosphatase 115 U/L (38-126); Blood Urea Nitrogen 30 mg/dl (9-20); Calcium 9.3 mg/dl (8.4-10.2); Carbon Dioxide 23 mmol/L (22-30); Chloride 106 mmol/L (98-107); Glucose 139 mg/dl (70-99); Sodium 143 mmol/L (135-145); Total Bilirubin 0.8 mg/dl (0.2-1.3); Total Protein 7.7 g/dl (6.3-8.2); eGFR > 60.00
--- NOTE | 2024-09-20 10:54 | ED.GENMED ---
History of Present Illness
General
Chief Complaint: Male Genito-Urinary Symptoms
Time Seen by Provider: 09/20/24 10:39
History of Present Illness
History of Present Illness:
69-year-old male with history of chronic urinary retention status post TURP procedure presents to the emergency department for evaluation of urinary retention. He is vague regarding the timeframe, states this has been ongoing 'a while'. Denies any
dysuria or hematuria. No fevers or chills. States when he attempted to give a urine specimen 'it blocked up'.
Past History
Past History
ED Past Medical History: Hypercholesterolemia, Psychiatric (Paranoid schizophrenia, major depressive disorder, Alzheimer's disease.), Other (problems with unstable gait) and Other (cholelithiasis)
ED Past Surgical History: Urological (TURP March 2023)
Social History
Tobacco: Smoker
Personal: Single
Living: shelter
Employment: Disabled
Family History
Family History: Other (Noncontributory)
Review of Systems
Review of Systems
Allergies reviewed?: Yes
All Other Systems: ROS reviewed and negative except as documented in HPI and ROS
Phy Exam
Physical Exam
Physical Exam:
GEN: Well appearing, NAD, WDWN
HEENT: Oral mucosa moist, no scleral icterus
Cardiac: Regular rate
Lung: No respiratory distress, no tachypnea
MSK: No gross deformity or injuries
Skin: Good color, no pallor or jaundice, no rashes
Neuro: AO x3, moves all extremities freely
Psych: Calm, cooperative
Course
Orders/Labs/Results
Orders:
Orders
09/20/24 09:29
Complete Blood Count/With Diff Urgent
Comprehensive Metabolic Panel Urgent
09/20/24 11:12
Urinalysis Reflex To Culture Urgent
Date Specimen was Collected: 09/20/24
Time Specimen was Collected: 10:55
Urine Microscopic Reflex Cult Urgent
Abnormal Lab Results
09/20/24 09/20/24
09:29 11:12
WBC 4.6 L 10^3/uL
(4.8-10.8)
RBC 3.87 L 10^6/uL
(4.70-6.10)
Hgb 12.9 L g/dL
(13.0-18.0)
Hct 36.7 L %
(39.0-52.0)
MCV 94.8 H fL
(80.0-94.0)
MCH 33.3 H pg
(27.0-31.0)
MPV 10.9 H fL
(7.4-10.4)
Immature Gran % 0.6 H %
(0-0.5)
BUN 30 H mg/dl
(9-20)
Glucose 139 H mg/dl
(70-99)
Albumin 5.1 H g/dl
(3.5-5.0)
Urine Bacteria (Reflex) Few A
(Negative)
Urine Albumin (Reflex) 1+ A
(Neg - Trace)
09/20/24 09:29
09/20/24 09:29
Vital Signs
Initial and Last Documented VS:
Initial Vital Signs
Temp Pulse Resp BP Pulse Ox
98 F 99 16 121/78 94
09/20/24 09:11 09/20/24 09:11 09/20/24 09:11 09/20/24 09:11 09/20/24 09:11
Last Documented Vital Signs
Temp Pulse Resp BP Pulse Ox
98 F 68 16 118/74 99
09/20/24 09:11 09/20/24 11:40 09/20/24 11:40 09/20/24 11:40 09/20/24 11:40
MDM/Problems Addressed
MDM/Problems Addressed:
No evidence of active urinary retention at this time. Patient was quite insistent on receiving medication for his symptoms however there is no significant volume of retention that would warrant alpha blockers at this time. Recommend outpatient
urology follow-up
*Critical Care Note
Total Time (30-74mins, 75-104mins- exclusive of procedures): Not Applicable
ED Attending Note
-
Portions of this chart may have been created with voice recognition software.� Occasional wrong word or��sound alike� substitutions may have occurred due to the inherent limitations of voice recognition software.
Discharge Plan
Departure
Patient Disposition: Home (Routine Discharge)
Date of Disposition: 09/20/24
Time of Disposition: 11:28
Patient with high blood pressure during this ER visit?: No
Discharge Problem:
Urinary retention
Instructions: Urinary Retention (DC)
Prescriptions:
No Action
gemfibrozil 600 MG tablet
600 mg PO BID@0800,1730
albuterol sulfate 1 PUFF HFA aerosol inhaler
2 puff inhalation R BIDPRN PRN (Reason: SOB)
dexlansoprazole [Dexilant] 30 MG capsule,biphase delayed releas
30 mg PO DAILY@0600
acetaminophen 325 MG tablet
650 mg PO Q4HPRN MDD 3000MG PRN (Reason: MILD PAIN/FEVER)
aspirin 81 MG tablet,delayed release (DR/EC)
81 mg PO DAILY
bisacodyl [OneLAX Bisacodyl] 10 MG suppository
10 mg [place] DAILYPRN PRN (Reason: if mom is ineffective after 24hrs)
docusate sodium 100 MG capsule
100 mg PO DAILY
clozapine 25 MG tablet
75 mg PO TID@0800,1200,1600
cholecalciferol (vitamin D3) [Vitamin D3] 400 UNITS tablet
400 units PO DAILY
tiotropium bromide [Spiriva with HandiHaler] 18 MCG capsule, w/inhalation device
1 puff inhalation R DAILY
Patient Comments:
HANDIHALER CAPSULE DEVICE
levothyroxine [Synthroid] 25 mcg Tablet
25 mcg PO DAILY@0600
calcium carbonate 400 mg calcium (1,000 mg) Tablet,Chewable
400 mg PO Q8HPRN PRN (Reason: gas)
polyethylene glycol 3350 [HealthyLax] 17 gram Powder In Packet
17 g PO DAILY Qty: 30 0RF
sennosides-docusate sodium [Senna-S] 8.6-50 mg Tablet
2 tab-cap PO HS
Fleet Enema 19-7 gram/118 mL Enema
118 ml [place] DAILYPRN PRN (Reason: if dulcolax is ineffective after 24hrs)
thiamine HCl (vitamin B1) 100 mg Tablet
100 mg PO DAILY Qty: 30 0RF
lamotrigine 100 mg Tablet
250 mg PO DAILY Qty: 30 0RF
Referrals:
John Walters DO [Family Provider] -
Michael Smith MD [Active] -
Activity Restrictions/Additional Instructions:
Your bladder is nearly empty after urinating
There is no need for a catheter
Your urine specimen shows no signs of infection
Please follow up with your urologist to discuss further management of these symptoms
Interventions
Interventions:
*Risk Screen - Suicide Last Done: 09/20/24 09:14
*General Assessment Last Done: 09/20/24 11:21
*Neglect/Abuse Screening Last Done: 09/20/24 09:14
ED- Fall Risk Assessment Last Done: 09/20/24 11:21
*Nursing Disposition Last Done: 09/20/24 11:40
ED-Male Genitourinary Assessment Last Done: 09/20/24 11:21
Discharge Date and Time
Discharge Date/Time: 09/20/24 12:25
Print Language: THAI
[2024-09-20 11:23] LABS: Urine Albumin 1+ (Neg - Trace); Urine Bilirubin Negative (Negative); Urine Character Clear (Clear); Urine Color Yellow; Urine Glucose Negative (Negative); Urine Ketone Negative (Negative); Urine Leukocyte Negative (Negative); Urine Nitrite Negative (Negative); Urine Occult Blood Negative (Negative); Urine Urobilinogen Negative (Neg - 1+)
[2024-09-20 11:40] VITALS: BP 118/74
[2024-09-20 11:54] LABS: Urine Amorphous Seen; Urine Mucus Few
[2024-09-20 11:57] LABS: Urine Bacteria Few (Negative); Urine Red Blood Cell 0-2 /HPF (0-2); Urine White Cell 0-2 /HPF (0-5)
== END 2024-09-20 12:25 | disposition home or self-care (01) ==
LOC: EMR 08:49
PROVIDERS: Emergency Medicine; Physician Assistant; EMERGENCY PHYSICIAN Emergency Medicine; FAMILY PHYSICIAN Internal Medicine
DX: R33.9 Retention of urine, unspecified (principal); E78.00 Pure hypercholesterolemia, unspecified; F02.80 Dementia in other diseases classified elsewhere, unspecified severity, without behavioral disturbance, psychotic disturbance, mood disturbance, and anxiety; F17.200 Nicotine dependence, unspecified, uncomplicated; F20.0 Paranoid schizophrenia; G30.9 Alzheimer's disease, unspecified; Z90.79 Acquired absence of other genital organ(s)
CPT/HCPCS: 99283; 80053; 81003; 81015; 85025

== ENCOUNTER 2024-10-15 03:42 | Emergency (ER) | payer MEDICARE, OTHER, SELFPAY ==
[2024-10-15] VITALS (7 sets, daily range): BP systolic 124–143; BP diastolic 73–97
[2024-10-15 04:34] LABS: % Basophils 0.4 % (0-2); % Eosinophils 3.6 % (0-6); % Immature Granulocytes 0.6 % (0-0.5); % Lymphocytes 36.4 % (20.5-51.1); % Monocytes 8.8 % (1.7-9.3); % Neutrophils 50.2 % (42.2-75.2); Absolute Eosinophils 0.2 10^3/uL (0-0.7); Absolute Lymphocytes 1.7 10^3/uL (1.2-3.4); Absolute Monocytes 0.4 10^3/uL (0.1-0.6); Absolute Neutrophils 2.4 10^3/uL (1.4-6.5); Hematocrit 36.4 % (39.0-52.0); Hemoglobin 12.6 g/dL (13.0-18.0); Mean Corp Hgb Conc. 34.6 g/dL (33.0-37.0); Mean Corpuscular Hgb 33.5 pg (27.0-31.0); Mean Corpuscular Volume 96.8 fL (80.0-94.0); Mean Platelet Volume 10.5 fL (7.4-10.4); Nucleated Red Blood Cells % 0 % (-); Platelet Count 195 10^3/uL (130-400); Red Blood Cell Count 3.76 10^6/uL (4.70-6.10); Red Cell Dist. Width 12.7 % (11.5-14.5); White Blood Cell Count 4.8 10^3/uL (4.8-10.8)
[2024-10-15 04:58] LABS: Blood Urea Nitrogen 28 mg/dl (9-20); Calcium 9.5 mg/dl (8.4-10.2); Carbon Dioxide 21 mmol/L (22-30); Chloride 110 mmol/L (98-107); Estimated Creatinine Clearance 61 ml/min; Glucose 108 mg/dl (70-99); Sodium 140 mmol/L (135-145); eGFR > 60.00
[2024-10-15 05:00] LABS: Troponin I < 0.012 ng/ml
[2024-10-15 05:17] LABS: Urine Albumin 1+ (Neg - Trace); Urine Bilirubin Negative (Negative); Urine Character Clear (Clear); Urine Color Yellow; Urine Glucose Negative (Negative); Urine Ketone Negative (Negative); Urine Leukocyte Negative (Negative); Urine Nitrite Negative (Negative); Urine Occult Blood Negative (Negative); Urine Urobilinogen Negative (Neg - 1+)
[2024-10-15 05:44] LABS: Urine Bacteria Few (Negative); Urine Red Blood Cell 0-2 /HPF (0-2); Urine White Cell 0-2 /HPF (0-5)
[2024-10-15] MEDS: NSS 1000 IV (06:43)
--- NOTE | 2024-10-15 06:48 | ED.GENMED ---
History of Present Illness
General
Chief Complaint: Urinary Symptoms
Source: patient
Time Seen by Provider: 10/15/24 06:32
History of Present Illness
History of Present Illness:
69-year-old male presents to the emergency room stating he has not passed any urine since 5 PM. Patient feels discomfort in the suprapubic region. He is concerned that he may be retaining urine. Patient had a recent ER visit for urinary retention
requiring catheter placement. Patient states he was started on 2 medications for enlarged prostate by a urologist. No fever or chills.
Past History
Past History
ED Past Medical History: Hypercholesterolemia, Psychiatric (Paranoid schizophrenia, major depressive disorder, Alzheimer's disease.), Other (problems with unstable gait) and Other (cholelithiasis)
ED Past Surgical History: Urological (TURP March 2023)
Social History
Tobacco: Smoker
Personal: Single
Living: [facility]
Employment: Disabled
Family History
Family History: Other (Noncontributory)
Phy Exam
Physical Exam
Physical Exam:
General: Awake, Alert, Oriented X3. No acute distress, very thin appearing, chronically ill-appearing, mild anesthesia
Vitals: unremarkable
Head: Atraumatic
Eyes: Pupils equal, EOMI
Throat: Airway intact, no exudates
Neck: Trachea midline
Lungs: Clear and equal b/l
Heart: Regular rate, no murmurs
Abd: Soft, Nontender, No pulsatile mass
Neuro: Nonfocal exam normal
Skin: Warm, dry, no rash
Extremities: pulses equal b/l, no edema
Course
Orders/Labs/Results
Orders:
Orders
10/15/24 03:51
EKG [Electrocardiogram (*1)] Urgent
Reason for Study: Chest Pain
EKG- Treatment ONCE
10/15/24 04:12
Basic Metabolic Panel Urgent
Complete Blood Count/With Diff Urgent
Troponin I Urgent
10/15/24 05:12
Urine Microscopic Reflex Cult Urgent
Urine Reflex Culture from UA [Urinalysis Reflex To Culture] Urgent
Date Specimen was Collected: 10/15/24
Time Specimen was Collected: 05:10
10/15/24 06:34
0.9% Sodium Chloride 1000 ml [Nss] 1,000 ml IV BOLUS
Abnormal Lab Results
10/15/24 10/15/24
04:12 05:12
RBC 3.76 L 10^6/uL
(4.70-6.10)
Hgb 12.6 L g/dL
(13.0-18.0)
Hct 36.4 L %
(39.0-52.0)
MCV 96.8 H fL
(80.0-94.0)
MCH 33.5 H pg
(27.0-31.0)
MPV 10.5 H fL
(7.4-10.4)
Immature Gran % 0.6 H %
(0-0.5)
Chloride 110 H mmol/L
(98-107)
Carbon Dioxide 21 L mmol/L
(22-30)
BUN 28 H mg/dl
(9-20)
Glucose 108 H mg/dl
(70-99)
Urine Bacteria (Reflex) Few A
(Negative)
Urine Albumin (Reflex) 1+ A
(Neg - Trace)
10/15/24 04:12
10/15/24 04:12
Vital Signs
Initial and Last Documented VS:
Initial Vital Signs
Temp Pulse Resp BP Pulse Ox
97.7 F 86 20 143/77 100
10/15/24 03:44 10/15/24 03:44 10/15/24 03:44 10/15/24 03:44 10/15/24 03:44
Last Documented Vital Signs
Temp Pulse Resp BP Pulse Ox
97.7 F 65 20 133/82 99
10/15/24 03:44 10/15/24 08:00 10/15/24 06:53 10/15/24 08:00 10/15/24 06:53
MDM/Problems Addressed
Differential Diagnosis Includes:
UTI, urinary retention, dehydration
MDM/Problems Addressed:
Patient concerned about urinary retention however he is voiding spontaneously. A postvoid bladder scan showed minimal urine left in the bladder. He looks a bit dry and his labs are consistent with some level of dehydration with an elevated BUN.
Patient given IV fluids and he did produce more urine. No evidence of infection on urinalysis. Patient stable for discharge back to his facility.
*Pulse Oximetry
Patient hypoxic: no
*EKG
Interpreted by ED Provider?: Yes
Heart Rate: 79
Rate: normal
Rhythm: sinus
[place]: normal axis
Interval: normal interval
QRS Pattern: normal QRS
Ischemia: no ischemia
*Area Secretary Interpretation
Rate: normal
Interpretation: normal
Rhythm: sinus
*Critical Care Note
Total Time (30-74mins, 75-104mins- exclusive of procedures): Not Applicable
ED Attending Note
-
Portions of this chart may have been created with voice recognition software.� Occasional wrong word or��sound alike� substitutions may have occurred due to the inherent limitations of voice recognition software.
Discharge Plan
Departure
Patient Disposition: Home (Routine Discharge)
Date of Disposition: 10/15/24
Time of Disposition: 09:17
Patient with high blood pressure during this ER visit?: No
Condition: Good
Discharge Problem:
Dehydration
Instructions: Dehydration in adults - ED discharge instructions, BLOOD PRESSURE
Prescriptions:
No Action
gemfibrozil 600 MG tablet
600 mg PO BID@0800,1730
albuterol sulfate 1 PUFF HFA aerosol inhaler
2 puff inhalation R BIDPRN PRN (Reason: SOB)
dexlansoprazole [Dexilant] 30 MG capsule,biphase delayed releas
30 mg PO DAILY@0600
acetaminophen 325 MG tablet
650 mg PO Q4HPRN MDD 3000MG PRN (Reason: MILD PAIN/FEVER)
aspirin 81 MG tablet,delayed release (DR/EC)
81 mg PO DAILY
bisacodyl [OneLAX Bisacodyl] 10 MG suppository
[address] DAILYPRN PRN (Reason: if mom is ineffective after 24hrs)
docusate sodium 100 MG capsule
100 mg PO DAILY
clozapine 25 MG tablet
75 mg PO TID@0800,1200,1600
cholecalciferol (vitamin D3) [Vitamin D3] 400 UNITS tablet
400 units PO DAILY
tiotropium bromide [Spiriva with HandiHaler] 18 MCG capsule, w/inhalation device
1 puff inhalation R DAILY
Patient Comments:
HANDIHALER CAPSULE DEVICE
levothyroxine [Synthroid] 25 mcg Tablet
25 mcg PO DAILY@0600
calcium carbonate 400 mg calcium (1,000 mg) Tablet,Chewable
1,000 mg PO Q8HPRN PRN (Reason: gas)
polyethylene glycol 3350 [HealthyLax] 17 gram Powder In Packet
17 g PO DAILY Qty: 30 0RF
sennosides-docusate sodium [Senna-S] 8.6-50 mg Tablet
2 tab-cap PO HS
Fleet Enema 19-7 gram/118 mL Enema
[address] DAILYPRN PRN (Reason: if dulcolax is ineffective after 24hrs)
thiamine HCl (vitamin B1) 100 mg Tablet
100 mg PO DAILY Qty: 30 0RF
lamotrigine 100 mg Tablet
250 mg PO DAILY Qty: 30 0RF
Referrals:
John Walters I., DO [Family Provider] -
Interventions
Interventions:
*Risk Screen - Suicide Last Done: 10/15/24 03:44
*General Assessment Last Done: 10/15/24 03:44
*Neglect/Abuse Screening Last Done: 10/15/24 03:44
ED- Fall Risk Assessment Last Done: 10/15/24 03:53
*ED COVID-19 Vaccine History Last Done: 10/15/24 03:44
*Nursing Disposition Last Done: 10/15/24 10:33
ED-Male Genitourinary Assessment Last Done: 10/15/24 03:53
Discharge Date and Time
Discharge Date/Time: 10/15/24 11:05
Print Language: EGYPTIAN
--- NOTE | 2024-10-15 06:52 | EDRN ---
the pt pressed the call jarrett and asked for a hand help mirror, this RN notified the pt that this RN did not have a hand help mirror to give him, will continue to monitor the pt closely
== END 2024-10-15 11:05 | disposition home or self-care (01) ==
LOC: EMR 03:42
PROVIDERS: Emergency Medicine; EMERGENCY PHYSICIAN Emergency Medicine; FAMILY PHYSICIAN Internal Medicine
DX: E86.0 Dehydration (principal); R33.9 Retention of urine, unspecified; E78.00 Pure hypercholesterolemia, unspecified; F20.0 Paranoid schizophrenia; F02.80 Dementia in other diseases classified elsewhere, unspecified severity, without behavioral disturbance, psychotic disturbance, mood disturbance, and anxiety; G30.9 Alzheimer's disease, unspecified; F17.200 Nicotine dependence, unspecified, uncomplicated; N40.1 Benign prostatic hyperplasia with lower urinary tract symptoms; Z90.79 Acquired absence of other genital organ(s)
CPT/HCPCS: 99283; 96360; 80048; 81003; 81015; 84484; 85025; 93005

== ENCOUNTER 2025-03-13 16:34 | Emergency (ER) | payer MEDICARE, OTHER, SELFPAY ==
[2025-03-13 16:36] VITALS: BP 121/70
[2025-03-13 17:53] LABS: Urine Character Clear (Clear)
[2025-03-13 19:30] VITALS: BP 146/87
--- NOTE | 2025-03-13 19:36 | ED.GENMED ---
History of Present Illness
General
Chief Complaint: Male Genito-Urinary Symptoms
Time Seen by Provider: 03/13/25 18:24
History of Present Illness
History of Present Illness:
69-year-old male with history of schizophrenia presenting to the emergency department for concern of urinary retention. Patient arrives from [facility] for concern that he is 'blocked '. Reports some pain in his bladder. On review of EMR,
patient has been seen in the past for this, with no significant obstruction. Patient somewhat limited historian. Denies fever or pain with urination or additional acute medical complaints.
Past History
Past History
ED Past Medical History: Hypercholesterolemia, Psychiatric (Paranoid schizophrenia, major depressive disorder, Alzheimer's disease.), Other (problems with unstable gait) and Other (cholelithiasis)
ED Past Surgical History: Urological (TURP March 2023)
Social History
Tobacco: Smoker
Personal: Single
Living: custodial
Employment: Disabled
Family History
Family History: Other (Noncontributory)
Phy Exam
Physical Exam
Physical Exam:
General: Well-appearing, no clinical signs of dehydration, nontoxic and in no acute distress
HEENT: protecting airway
Neck: appears supple
CV: Normal heart rate, regular rhythm
Resp: No accessory muscle use, no increased work of breathing
Abd: Soft and non-distended, no tenderness to palpation
Extremities: No deformities, no swelling
Neuro: alert, no focal neurologic deficit
: deferred
Rectal: deferred
Psych: Normal affect
Skin: Intact
Course
Orders/Labs/Results
Orders:
Orders
03/13/25 17:48
Urinalysis Reflex To Culture Urgent
Date Specimen was Collected: 03/13/25
Time Specimen was Collected: 17:12
Vital Signs
Initial and Last Documented VS:
Initial Vital Signs
Temp Pulse Resp BP Pulse Ox
98.3 F 92 16 121/70 96
03/13/25 16:36 03/13/25 16:36 03/13/25 16:36 03/13/25 16:36 03/13/25 16:36
Last Documented Vital Signs
Temp Pulse Resp BP Pulse Ox
98.3 F 92 16 121/70 96
03/13/25 16:36 03/13/25 16:36 03/13/25 16:36 03/13/25 16:36 03/13/25 16:36
MDM/Problems Addressed
MDM/Problems Addressed:
69-year-old male with history of schizophrenia, hypertension, COPD presenting for concern of urinary retention. Vital signs on arrival are normal.
On exam patient is resting comfortably, no acute distress or discomfort. Benign abdominal exam, without focal tenderness to the abdomen, no significant distention. Patient was able to provide a urine sample upon arrival. Urinalysis without any
sign of infection, no hematuria. Postvoid bladder scan obtained, no retention. At this time without any concern for obstruction or infection. No concern for any serious intra-abdominal process or infection given hemodynamic stability, nontoxic
appearance, unremarkable abdominal exam. Do suspect anxiety component. Ultimately feel stable for discharge. Return precautions discussed with patient verbalized understanding
*Pulse Oximetry
SaO2: 96
Oxygen Mode of Delivery: Room air
Patient hypoxic: no
*Critical Care Note
Total Time (30-74mins, 75-104mins- exclusive of procedures): Not Applicable
ED Attending Note
-
Portions of this chart may have been created with voice recognition software.� Occasional wrong word or��sound alike� substitutions may have occurred due to the inherent limitations of voice recognition software.
Discharge Plan
Departure
Patient Disposition: Home (Routine Discharge)
Date of Disposition: 03/13/25
Time of Disposition: 19:40
Patient with high blood pressure during this ER visit?: No
Condition: Good
Discharge Problem:
Concern about urinary tract disease without diagnosis
Instructions: Urinary Retention (DC)
Prescriptions:
No Action
gemfibrozil 600 MG tablet
600 mg PO BID@0800,1730
albuterol sulfate 1 PUFF HFA aerosol inhaler
2 puff inhalation R BIDPRN PRN (Reason: SOB)
dexlansoprazole [Dexilant] 30 MG capsule,biphase delayed releas
30 mg PO DAILY@0600
acetaminophen 325 MG tablet
650 mg PO Q4HPRN MDD 3000MG PRN (Reason: MILD PAIN/FEVER)
aspirin 81 MG tablet,delayed release (DR/EC)
81 mg PO DAILY
bisacodyl [OneLAX Bisacodyl] 10 MG suppository
10 mg [place] DAILYPRN PRN (Reason: if mom is ineffective after 24hrs)
docusate sodium 100 MG capsule
100 mg PO DAILY
clozapine 25 MG tablet
75 mg PO TID@0800,1200,1600
cholecalciferol (vitamin D3) [Vitamin D3] 400 UNITS tablet
400 units PO DAILY
tiotropium bromide [Spiriva with HandiHaler] 18 MCG capsule, w/inhalation device
1 puff inhalation R DAILY
Patient Comments:
HANDIHALER CAPSULE DEVICE
levothyroxine [Synthroid] 25 mcg Tablet
25 mcg PO DAILY@0600
calcium carbonate 400 mg calcium (1,000 mg) Tablet,Chewable
1,000 mg PO Q8HPRN PRN (Reason: gas)
polyethylene glycol 3350 [HealthyLax] 17 gram Powder In Packet
17 g PO DAILY Qty: 30 0RF
sennosides-docusate sodium [Senna-S] 8.6-50 mg Tablet
2 tab-cap PO HS
Fleet Enema 19-7 gram/118 mL Enema
118 ml [place] DAILYPRN PRN (Reason: if dulcolax is ineffective after 24hrs)
thiamine HCl (vitamin B1) 100 mg Tablet
100 mg PO DAILY Qty: 30 0RF
lamotrigine 100 mg Tablet
250 mg PO DAILY Qty: 30 0RF
Referrals:
John Walters DO [Family Provider, Internal Medicine]
Activity Restrictions/Additional Instructions:
You were seen in the emergency department for concern of retention of your urine
You were found to have a normal urinalysis and no evidence of any retention of your urine.
Please follow-up closely with your primary care physician.
Return to the emergency department for any worsening of your symptoms, or any development of chest pain, difficulty breathing, abdominal pain with persistent vomiting and inability to tolerate food or liquid by mouth (concern for dehydration),
weakness, headache or confusion, fever greater than 100.4, or any additional symptoms that are concerning to you.
Thank you for choosing [facility].
Discharge Date and Time
Print Language: [place]
[2025-03-13 20:09] VITALS: BMI 19.9
== END 2025-03-13 21:09 | disposition home or self-care (01) ==
LOC: EMR 16:34
PROVIDERS: Emergency Medicine; EMERGENCY PHYSICIAN Student in an Organized Health Care Education/Training Program; FAMILY PHYSICIAN Internal Medicine
DX: R33.9 Retention of urine, unspecified (principal); I10 Essential (primary) hypertension; G30.9 Alzheimer's disease, unspecified; F02.80 Dementia in other diseases classified elsewhere, unspecified severity, without behavioral disturbance, psychotic disturbance, mood disturbance, and anxiety; J44.9 Chronic obstructive pulmonary disease, unspecified; F17.200 Nicotine dependence, unspecified, uncomplicated; E78.00 Pure hypercholesterolemia, unspecified
CPT/HCPCS: 99283; 81003

== ENCOUNTER 2025-04-12 08:33 | Emergency (ER) | payer MEDICARE, OTHER, SELFPAY ==
[2025-04-12 08:35] VITALS: BP 109/69
[2025-04-12 09:57] VITALS: BMI 19.8
[2025-04-12 10:02] VITALS: BP 112/74
--- NOTE | 2025-04-12 10:23 | ED.GENMED ---
History of Present Illness
General
Chief Complaint: Bowel Problem
Source: patient, ambulance crew and correction
Exam Limitations: none
Time Seen by Provider: 04/12/25 09:34
Nursing documentation reviewed up to this point in time: agreed with
History of Present Illness
History of Present Illness:
69-year-old male past medical history of dementia, from nursing facility with concerns of lower abdominal pain started this morning. He claims of had decreased bowel movements pain mainly to the suprapubic region and left lower quadrant. Denies
any vomiting fevers. No chest pain or shortness of breath.
Past History
Past History
ED Past Medical History: Hypercholesterolemia, Psychiatric (Paranoid schizophrenia, major depressive disorder, Alzheimer's disease.), Other (problems with unstable gait) and Other (cholelithiasis)
ED Past Surgical History: Urological (TURP March 2023)
Social History
Tobacco: Smoker
Personal: Single
Living: correction
Employment: Disabled
Family History
Family History: Other (Noncontributory)
Review of Systems
Review of Systems
Allergies reviewed?: Yes
All Other Systems: ROS reviewed and negative except as documented in HPI and ROS
Phy Exam
Physical Exam
Physical Exam:
GENERAL: Alert , in no apparent distress
EYE: pupils equal and reactive
NECK: Supple, no significant adenopathy.
ENT: o/p clr, mmm.
CARDIAC: Regular rate and rhythm .
LUNGS: Clear breath sounds bilaterally, no acute respiratory distress, no wheezes/rales/rhonchi
ABDOMEN: Reproducible pain in the left lower quadrant otherwise soft abdomen
NEUROLOGICAL: Alert and oriented, no focal neuro deficits
SKIN: Warm and dry, skin intact.
MUSCULOSKELETAL: No edema, well perfused.
PSYCH: Normal and appropriate interaction.
Course
Orders/Labs/Results
Orders:
Orders
04/12/25 09:47
EKG- Treatment ONCE
04/12/25 09:49
CT Abd/pel W Iv And Oral Contr Urgent
Comment:
Reason For Exam: llq pain
Iohexol [Omnipaque] See Protocol PO NOW STA
04/12/25 10:16
Complete Blood Count/With Diff Urgent
Comprehensive Metabolic Panel Urgent
Lipase Urgent
04/12/25 10:48
Urinalysis Reflex To Culture Urgent
Date Specimen was Collected: 04/12/25
Time Specimen was Collected: 10:40
Urine Microscopic Reflex Cult Urgent
04/12/25 12:57
Midazolam HCl [Versed] 2 mg IV NOW STA
04/12/25 13:09
Midazolam HCl [Versed] 1 mg IV NOW STA
Abnormal Lab Results
04/12/25 04/12/25
10:16 10:48
WBC 4.4 L 10^3/uL
(4.8-10.8)
RBC 3.97 L 10^6/uL
(4.70-6.10)
Hgb 12.7 L g/dL
(13.0-18.0)
Hct 37.2 L %
(39.0-52.0)
MCH 32.0 H pg
(27.0-31.0)
MPV 10.7 H fL
(7.4-10.4)
Absolute Lymphs (auto) 1.1 L 10^3/uL
(1.2-3.4)
Chloride 110 H mmol/L
(98-107)
BUN 26 H mg/dl
(9-20)
Glucose 113 H mg/dl
(70-99)
Urine Bacteria (Reflex) Few A
(Negative)
Urine Albumin (Reflex) 1+ A
(Neg - Trace)
04/12/25 10:16
04/12/25 10:16
Vital Signs
Initial and Last Documented VS:
Initial Vital Signs
Temp Pulse Resp BP Pulse Ox
98.2 F 94 18 109/69 100
04/12/25 08:35 04/12/25 08:35 04/12/25 08:35 04/12/25 08:35 04/12/25 08:35
Last Documented Vital Signs
Temp Pulse Resp BP Pulse Ox
98.2 F 73 22 132/83 97
04/12/25 08:35 04/12/25 13:45 04/12/25 13:45 04/12/25 13:00 04/12/25 13:30
MDM/Problems Addressed
MDM/Problems Addressed:
69-year-old male presenting with concerns of left lower quadrant abdominal pain started this morning. Vital signs normal on arrival reproducible pain to the left lower quadrant on exam plan for CT scan for further assessment. CT scan showing
constipation plan for treatment with MiraLAX otherwise no emergent findings stable for discharge.
*Pulse Oximetry
SaO2: 100
Oxygen Mode of Delivery: Room air
Patient hypoxic: no (97)
*Critical Care Note
Total Time (30-74mins, 75-104mins- exclusive of procedures): Not Applicable
ED Attending Note
-
Portions of this chart may have been created with voice recognition software.� Occasional wrong word or��sound alike� substitutions may have occurred due to the inherent limitations of voice recognition software.
Discharge Plan
Departure
Patient Disposition: Home (Routine Discharge)
Date of Disposition: 04/12/25
Time of Disposition: 14:04
Patient with high blood pressure during this ER visit?: No
Condition: Good
Covid-19: Not Applicable
Discharge Problem:
Constipation
Instructions: Constipation, Adult (DC)
Prescriptions:
New
polyethylene glycol 3350 [Miralax] 17 gram powder in packet
17 g PO DAILY Qty: 14 0RF
No Action
gemfibrozil 600 MG tablet
600 mg PO BID
dexlansoprazole [Dexilant] 30 MG capsule,biphase delayed releas
30 mg PO DAILY@0600
acetaminophen 325 MG tablet
650 mg PO Q4HPRN PRN (Reason: MILD PAIN/FEVER)
aspirin 81 MG tablet,delayed release (DR/EC)
81 mg PO DAILY
bisacodyl [OneLAX Bisacodyl] 10 MG suppository
10 mg WI DAILYPRN PRN (Reason: if mom is ineffective after 24hrs)
docusate sodium 100 MG capsule
100 mg PO DAILY
clozapine 25 MG tablet
75 mg PO TID@0800,1200,1600
cholecalciferol (vitamin D3) [Vitamin D3] 400 UNITS tablet
400 units PO DAILY
tiotropium bromide [Spiriva with HandiHaler] 18 MCG capsule, w/inhalation device
1 puff inhalation R DAILY
levothyroxine [Synthroid] 25 mcg Tablet
25 mcg PO DAILY@0600
calcium carbonate 400 mg calcium (1,000 mg) Tablet,Chewable
1,000 mg PO Q8HPRN PRN (Reason: gas)
polyethylene glycol 3350 [HealthyLax] 17 gram Powder In Packet
17 g PO DAILY Qty: 30 0RF
Fleet Enema 19-7 gram/118 mL Enema
118 ml WI DAILYPRN PRN (Reason: if dulcolax is ineffective after 24hrs)
thiamine HCl (vitamin B1) 100 mg Tablet
100 mg PO DAILY Qty: 30 0RF
sennosides [senna] 8.6 mg Tablet
17.2 mg PO HS
lamotrigine 100 mg tablet
250 mg PO DAILY
fluoxetine 10 mg Tablet
10 mg PO DAILY
budesonide-formoterol [Symbicort] 80-4.5 mcg/actuation Hfa Aerosol Inhaler
2 inh INHALATION R [id number] PRN (Reason: SOB)
Referrals:
John Walters I., DO [Family Provider, Internal Medicine]
Activity Restrictions/Additional Instructions:
You came to the emergency department today with concerns of abdominal pain and constipation. CT scan showed constipation please take MiraLAX daily to help with symptoms. Return for any worsening, new or concerning symptoms.
Interventions
Interventions:
*Risk Screen - Suicide Last Done: 04/12/25 08:35
*General Assessment Last Done: 04/12/25 08:35
*Neglect/Abuse Screening Last Done: 04/12/25 08:35
*ED- Fall Risk Assessment Last Done: 04/12/25 10:09
*ED COVID-19 Vaccine History Last Done: 04/12/25 10:09
GZ-Beahds-Kvzjhvbcso Assessment Last Done: 04/12/25 10:09
Discharge Date and Time
Print Language: UKRAINIAN
[2025-04-12 10:25] LABS: Hematocrit 37.2 % (39.0-52.0); Hemoglobin 12.7 g/dL (13.0-18.0); Mean Corp Hgb Conc. 34.1 g/dL (33.0-37.0); Mean Corpuscular Volume 93.7 fL (80.0-94.0); Nucleated Red Blood Cells % 0 % (-); Platelet Count 215 10^3/uL (130-400); Red Cell Dist. Width 12.9 % (11.5-14.5)
[2025-04-12] MEDS: OMNIPAQUE 50 ML PO (10:26)
[2025-04-12 10:45] LABS: ALT (SGPT) 19 U/L (0-50); AST (SGOT) 26 U/L (17-59); Albumin 4.9 g/dl (3.5-5.0); Alkaline Phosphatase 110 U/L (38-126); Blood Urea Nitrogen 26 mg/dl (9-20); Calcium 9.5 mg/dl (8.4-10.2); Carbon Dioxide 24 mmol/L (22-30); Chloride 110 mmol/L (98-107); Estimated Creatinine Clearance 60 ml/min; Glucose 113 mg/dl (70-99); Lipase 176 U/L (23-300); Potassium 4.4 mmol/L (3.5-5.1); Sodium 143 mmol/L (135-145); Total Protein 7.6 g/dl (6.3-8.2); eGFR > 60.00
[2025-04-12 10:59] LABS: Urine Character Clear (Clear)
[2025-04-12 11:26] LABS: Urine Red Blood Cell 0-2 /HPF (0-2); Urine White Cell 0-2 /HPF (0-5)
[2025-04-12 13:00] VITALS: BP 132/83
[2025-04-12] MEDS: VERSED 2 MG IV (13:10)
[2025-04-12 14:00] VITALS: BP 102/82
[2025-04-12 15:00] VITALS: BP 124/69
== END 2025-04-12 15:10 | disposition home or self-care (01) ==
LOC: EMR 08:33
PROVIDERS: Physician Assistant; EMERGENCY PHYSICIAN Emergency Medicine; FAMILY PHYSICIAN Internal Medicine
DX: K59.00 Constipation, unspecified (principal); R10.30 Lower abdominal pain, unspecified; E78.00 Pure hypercholesterolemia, unspecified; F02.80 Dementia in other diseases classified elsewhere, unspecified severity, without behavioral disturbance, psychotic disturbance, mood disturbance, and anxiety; G30.9 Alzheimer's disease, unspecified; F20.0 Paranoid schizophrenia; F17.200 Nicotine dependence, unspecified, uncomplicated; Z90.79 Acquired absence of other genital organ(s)
CPT/HCPCS: 99284; 96374; 74177; 80053; 81003; 81015; 83690; 85025; Q9967

== ENCOUNTER 2025-05-27 08:14 | Emergency (ER) | payer MEDICARE, OTHER, SELFPAY ==
[2025-05-27 08:20] VITALS: BP 130/89
[2025-05-27 08:43] LABS: Urine Character Clear (Clear)
--- NOTE | 2025-05-27 09:03 | ED.GENMED ---
History of Present Illness
General
Chief Complaint: Urinary Symptoms
Source: patient, records and ambulance crew
Exam Limitations: dementia
Time Seen by Provider: 05/27/25 08:59
Nursing documentation reviewed up to this point in time: agreed with
History of Present Illness
History of Present Illness:
70-year-old male with past medical history of dementia, BPH, schizophrenia who presents to the emergency department from [facility] for evaluation of urinary issues. Patient reports that starting yesterday afternoon he started to
notice some difficulty emptying his bladder�he says that he feels that when he urinates he does not empty his bladder completely. He denies any dysuria. He has not noticed any hematuria. He denies any abdominal or flank pain. He denies any
fevers or chills. I spoke with staff at [facility] for collateral history: They report that he has been in his normal state of health the past few days, apparently this morning he called 911 himself to go to the hospital for urinary issues; he
has done this in the past multiple times. I did review his chart it looks like he was here in February this year with similar complaint with reassuring workup; he was seen in March for constipation; had CT abdominal and pelvis at that time.
Past History
Past History
ED Past Medical History: Hypercholesterolemia, Psychiatric (Paranoid schizophrenia, major depressive disorder, Alzheimer's disease.), Other (problems with unstable gait) and Other (cholelithiasis)
ED Past Surgical History: Urological (TURP March 2023)
Social History
Tobacco: Smoker
Personal: Single
Living: residential
Employment: Disabled
Family History
Family History: Other (Noncontributory)
Review of Systems
Review of Systems
All Other Systems: ROS reviewed and negative except as documented in HPI and ROS
Constitutional: Denies fever
Respiratory: Denies trouble breathing
Cardiac: Denies chest pain
ABD/GI: Denies abdominal pain or vomiting
: Reports difficulty voiding (Feeling of incomplete emptying); Denies dysuria, frequency or flank pain
Musculoskeletal: Denies neck pain or back pain
Neurological: Denies headache
Phy Exam
Physical Exam
Physical Exam:
General: Awake, alert; no acute distress
Head: Normocephalic, atraumatic
Eyes: Conjunctiva normal
Throat: Airway intact, handling secretions
Neck: Trachea midline, supple without meningismus
Lungs: Breathing comfortably without distress, no tachypnea or hypoxia
Heart: Regular rate
Abd: Soft, non distended, nontender
Back: No CVA tenderness, no tenderness in the thoracic or lumbar region
Neuro: Cranial nerves grossly intact, speech fluid, ambulatory with steady gait
Skin: Warm and dry
Extremities: No edema in extremities, warm and well-perfused
Scores
Heart Failure Risk
Heart Failure Risk Score: Not Applicable
Heart Score for Chest Pain Patients
STEMI patient?: Not applicable
Withdrawal Assessment of Alcohol
Withdrawal Assessment Completed?: Not applicable
Course
Orders/Labs/Results
Orders:
Orders
05/27/25 08:23
Urinalysis Reflex To Culture Urgent
Date Specimen was Collected: 05/27/25
Time Specimen was Collected: 08:15
Urine Microscopic Reflex Cult Urgent
05/27/25 08:50
Bladder Scan- Treatment ONCE
Abnormal Lab Results
05/27/25
08:23
Urine Albumin (Reflex) 1+ A
(Neg - Trace)
Vital Signs
Initial and Last Documented VS:
Initial Vital Signs
Temp Pulse Resp BP Pulse Ox
36.5 C 98 18 130/89 97
05/27/25 08:20 05/27/25 08:20 05/27/25 08:20 05/27/25 08:20 05/27/25 08:20
Last Documented Vital Signs
Temp Pulse Resp BP Pulse Ox
36.5 C 98 18 130/89 97
05/27/25 08:20 05/27/25 08:20 05/27/25 08:20 05/27/25 08:20 05/27/25 08:20
MDM/Problems Addressed
Differential Diagnosis Includes:
Acute urinary retention, UTI, prostatism
MDM/Problems Addressed:
70-year-old male presents for evaluation of urinary symptoms�he feels the sensation of incomplete emptying. No dysuria, no fevers, no abdominal or flank pain. Vital signs are normal. His urinalysis here today shows no signs of an acute infection.
His bladder scan shows no significant retained urine. He is emptying his bladder here without any issue, no other acute complaints. Can reasonably trial Flomax for your lower urinary tract symptoms given that this is his second ER visit for such
symptoms over the past few months. Refer to urology for follow-up. Stable for discharge back to residential. Patient comfortable with this plan.
Chronic conditions affecting care:
Dementia, BPH
*Pulse Oximetry
SaO2: 97
Oxygen Mode of Delivery: Room air
Patient hypoxic: no (97%)
*Critical Care Note
Total Time (30-74mins, 75-104mins- exclusive of procedures): Not Applicable
Data Reviewed
Review of Other/Old Records Reveals: Records
Source: patient, records, ambulance crew and residential
ED Attending Note
-
Portions of this chart may have been created with voice recognition software.� Occasional wrong word or��sound alike� substitutions may have occurred due to the inherent limitations of voice recognition software.
Discharge Plan
Departure
Patient Disposition: Home (Routine Discharge)
Date of Disposition: 05/27/25
Time of Disposition: 09:19
Patient with high blood pressure during this ER visit?: No
Discharge Problem:
Lower urinary tract symptoms
Instructions: Benign prostatic hyperplasia (enlarged prostate)
Prescriptions:
New
tamsulosin [Flomax] 0.4 mg capsule
0.4 mg PO DAILY Qty: 30 0RF
No Action
gemfibrozil 600 MG tablet
600 mg PO BID
dexlansoprazole [Dexilant] 30 MG capsule,biphase delayed releas
30 mg PO DAILY@0600
acetaminophen 325 MG tablet
650 mg PO Q4HPRN PRN (Reason: MILD PAIN/FEVER)
aspirin 81 MG tablet,delayed release (DR/EC)
81 mg PO DAILY
bisacodyl [OneLAX Bisacodyl] 10 MG suppository
10 mg [place] DAILYPRN PRN (Reason: if mom is ineffective after 24hrs)
docusate sodium 100 MG capsule
100 mg PO DAILY
clozapine 25 MG tablet
75 mg PO TID@0800,1200,1600
cholecalciferol (vitamin D3) [Vitamin D3] 400 UNITS tablet
400 units PO DAILY
tiotropium bromide [Spiriva with HandiHaler] 18 MCG capsule, w/inhalation device
1 puff inhalation R DAILY
levothyroxine [Synthroid] 25 mcg Tablet
25 mcg PO DAILY@0600
calcium carbonate 400 mg calcium (1,000 mg) Tablet,Chewable
1,000 mg PO Q8HPRN PRN (Reason: gas)
polyethylene glycol 3350 [HealthyLax] 17 gram Powder In Packet
17 g PO DAILY Qty: 30 0RF
Fleet Enema 19-7 gram/118 mL Enema
118 ml [place] DAILYPRN PRN (Reason: if dulcolax is ineffective after 24hrs)
thiamine HCl (vitamin B1) 100 mg Tablet
100 mg PO DAILY Qty: 30 0RF
sennosides [senna] 8.6 mg Tablet
17.2 mg PO HS
lamotrigine 100 mg tablet
250 mg PO DAILY
fluoxetine 10 mg Tablet
10 mg PO DAILY
budesonide-formoterol [Symbicort] 80-4.5 mcg/actuation Hfa Aerosol Inhaler
2 inh INHALATION R [id number] PRN (Reason: SOB)
polyethylene glycol 3350 [Miralax] 17 gram powder in packet
17 g PO DAILY Qty: 14 0RF
Referrals:
Michael Smith MD [Active, Urology] - Call in 1-3 days for appt
Activity Restrictions/Additional Instructions:
You were seen in the ER for sensation of difficulty emptying her bladder. Thankfully in the ER you had no signs of urine retention or infection. You should see the urologist as soon as possible after your ER visit today to have further assessment
of your symptoms. We did start you on some medicine that we hope will help with your symptoms of incomplete bladder emptying. If you feel your symptoms are worsening or if you develop fever, chills or any other concerning symptoms please return to
the ER to be reassessed.
Thank you for visiting the Emergency Department at [facility].
1. Please schedule a follow up appointment as directed. Call first thing tomorrow morning to make an appointment.
2. If indicated, please take your medications as instructed and indicated on discharge paperwork.
3. If any of your symptoms do not improve, or persist, or become more severe within 6-12 hours, please return to the emergency department for further care.
4. Please return to the emergency department if you develop a headache, neck pain/stiffness, fever greater than 100.4F, chest pain, shortness of breath, persistent nausea, vomiting, slurred speech, difficulty walking, numbness/tingling, weakness,
signs of infection or any other symptoms that are worrisome to you.
Please call [phone] if you have any questions.
Interventions
Interventions:
*Risk Screen - Suicide Last Done: 05/27/25 08:20
*General Assessment Last Done: 05/27/25 08:20
*Neglect/Abuse Screening Last Done: 05/27/25 08:20
Discharge Date and Time
Print Language: KYRGYZ
[2025-05-27 09:13] VITALS: BP 115/76
[2025-05-27 09:13] LABS: Glucose - Point of Care 103 mg/dl (70-99)
[2025-05-27 09:17] LABS: Urine Urothelial Cell 0-2 /LPF (FEW)
[2025-05-27 09:18] LABS: Urine Red Blood Cell 0-2 /HPF (0-2); Urine White Cell 0-2 /HPF (0-5)
== END 2025-05-27 10:28 | disposition home or self-care (01) ==
LOC: EMR 08:14
PROVIDERS: Emergency Medicine; EMERGENCY PHYSICIAN Emergency Medicine
DX: N40.1 Benign prostatic hyperplasia with lower urinary tract symptoms (principal); R39.14 Feeling of incomplete bladder emptying; G30.9 Alzheimer's disease, unspecified; F02.80 Dementia in other diseases classified elsewhere, unspecified severity, without behavioral disturbance, psychotic disturbance, mood disturbance, and anxiety; E78.00 Pure hypercholesterolemia, unspecified; F20.0 Paranoid schizophrenia; F32.9 Major depressive disorder, single episode, unspecified; F17.200 Nicotine dependence, unspecified, uncomplicated
CPT/HCPCS: 99283; 81003; 81015; 82962

== ENCOUNTER 2025-08-01 07:05 | Emergency (ER) | payer MEDICARE, OTHER, SELFPAY ==
[2025-08-01 07:09] VITALS: BP 122/81
[2025-08-01 07:15] VITALS: BMI 19.9
[2025-08-01 07:25] LABS: Hematocrit 35.5 % (39.0-52.0); Hemoglobin 12.5 g/dL (13.0-18.0); Mean Corp Hgb Conc. 35.2 g/dL (33.0-37.0); Mean Corpuscular Volume 93.7 fL (80.0-94.0); Nucleated Red Blood Cells % 0 % (-); Platelet Count 208 10^3/uL (130-400); Red Cell Dist. Width 13.2 % (11.5-14.5)
[2025-08-01 07:44] LABS: ALT (SGPT) 17 U/L (0-50); AST (SGOT) 26 U/L (17-59); Albumin 4.7 g/dl (3.5-5.0); Alkaline Phosphatase 126 U/L (38-126); Blood Urea Nitrogen 23 mg/dl (9-20); Calcium 9.9 mg/dl (8.4-10.2); Carbon Dioxide 23 mmol/L (22-30); Chloride 108 mmol/L (98-107); Estimated Creatinine Clearance 55 ml/min; Glucose 130 mg/dl (70-99); Potassium 3.8 mmol/L (3.5-5.1); Sodium 140 mmol/L (135-145); Total Protein 7.5 g/dl (6.3-8.2); eGFR > 60.00
--- NOTE | 2025-08-01 07:56 | ED.GENMED ---
History of Present Illness
General
Chief Complaint: Abdominal Pain
Time Seen by Provider: 08/01/25 07:10
History of Present Illness
History of Present Illness:
17-year-old male with past medical history of paranoid schizophrenia, COPD presents from snf facility complaining of 'bladder pain' that has been ongoing for several months. Medicine facility staff report that he had called 911 this
morning for himself upon waking up. Patient denies any abdominal pain or back pain. No fevers, chills. Patient has been in the emergency room several times over the last few months for similar complaints. He was started on Flomax but has not yet
followed up with urology.
Past History
Past History
ED Past Medical History: Hypercholesterolemia, Psychiatric (Paranoid schizophrenia, major depressive disorder, Alzheimer's disease.), Other (problems with unstable gait) and Other (cholelithiasis)
ED Past Surgical History: Urological (TURP March 2023)
Social History
Tobacco: Smoker
Personal: Single
Living: snf
Employment: Disabled
Family History
Family History: Other (Noncontributory)
Phy Exam
General Physical Exam
General Presentation: well appearing, no apparent distress and other (Frail)
General Skin: warm and dry
General Habitus: normal
General Mental: confused
General Hydration: appears well hydrated
ENT Exam
ENT Exam: EOMI, pharynx normal, neck supple and normocephalic
Eye Exam
Eye Exam: PERRL, cornea clear and conjunctiva normal
Cardiovascular Exam
Cardiovascular Exam: regular rate/rhythm, no edema, no murmur and normal peripheral pulses
Pulmonary Exam
Pulmonary Exam: lungs clear, no respiratory distress, no rales, no crackles, no rhonchi, no stridor, no wheezing and no cough
Gastrointestinal Exam
Gastrointestinal Exam: normal bowel sounds, non tender, soft, no organomegaly, no pulsatile mass, non distended and tender (suprapubic, no guarding or rebound)
Neurological Exam
Neurological Exam: alert, oriented x3, no motor deficits and speech normal
Musculoskeletal Exam
Musculoskeletal Exam: full ROM and no edema
Skin Exam
Skin Exam: normal color, warm/dry, no rash and no petechia
Psychiatric Exam
Psychiatric Exam: normal mood/affect
Course
Orders/Labs/Results
Orders:
Orders
08/01/25 07:17
Complete Blood Count/With Diff Urgent
Comprehensive Metabolic Panel Urgent
08/01/25 08:37
Urinalysis Reflex To Culture Urgent
Date Specimen was Collected: 08/01/25
Time Specimen was Collected: 08:35
Urine Microscopic Reflex Cult Urgent
Urine Culture Urgent
HERNÁN Source: U
Specimen Description:
Date Specimen was Collected: 08/01/25
Time Specimen was Collected: 08:35
Abnormal Lab Results
08/01/25 08/01/25
07:17 08:37
RBC 3.79 L 10^6/uL
(4.70-6.10)
Hgb 12.5 L g/dL
(13.0-18.0)
Hct 35.5 L %
(39.0-52.0)
MCH 33.0 H pg
(27.0-31.0)
MPV 10.6 H fL
(7.4-10.4)
Immature Gran % 0.6 H %
(0-0.5)
Chloride 108 H mmol/L
(98-107)
BUN 23 H mg/dl
(9-20)
Glucose 130 H mg/dl
(70-99)
Urine RBC 3-6 A /HPF
(0-2)
Urine Bacteria (Reflex) Moderate A
(Negative)
Urine Albumin (Reflex) 2+ A
(Neg - Trace)
08/01/25 07:17
08/01/25 07:17
Vital Signs
Initial and Last Documented VS:
Initial Vital Signs
Temp Pulse Resp BP Pulse Ox
36.9 C 96 26 122/81 96
08/01/25 07:09 08/01/25 07:09 08/01/25 07:09 08/01/25 07:09 08/01/25 07:09
Last Documented Vital Signs
Temp Pulse Resp BP Pulse Ox
36.9 C 101 31 122/81 96
08/01/25 07:09 08/01/25 09:00 08/01/25 07:30 08/01/25 07:09 08/01/25 07:58
MDM/Problems Addressed
Differential Diagnosis Includes:
Pain with chronic pain unchanged from prior. He has not yet seen urology as an outpatient. UA is unremarkable for any infection. Discussed with patient that he should follow-up with urology in the office. Given that this pain is unchanged and
not new no further workup is indicated. Return cautions discussed with patient. He will be discharged back to his SNF.
*Pulse Oximetry
SaO2: 96
Oxygen Mode of Delivery: Room air
Patient hypoxic: no
*Critical Care Note
Total Time (30-74mins, 75-104mins- exclusive of procedures): Not Applicable
ED Attending Note
-
Portions of this chart may have been created with voice recognition software.� Occasional wrong word or��sound alike� substitutions may have occurred due to the inherent limitations of voice recognition software.
Discharge Plan
Departure
Patient Disposition: Home (Routine Discharge)
Date of Disposition: 08/01/25
Time of Disposition: 08:54
Patient with high blood pressure during this ER visit?: No
Discharge Problem:
Chronic bladder pain
Prescriptions:
No Action
gemfibrozil 600 MG tablet
600 mg PO BID
dexlansoprazole [Dexilant] 30 MG capsule,biphase delayed releas
30 mg PO DAILY@0600
acetaminophen 325 MG tablet
650 mg PO Q4HPRN PRN (Reason: MILD PAIN/FEVER)
aspirin 81 MG tablet,delayed release (DR/EC)
81 mg PO DAILY
bisacodyl [OneLAX Bisacodyl] 10 MG suppository
10 mg WI DAILYPRN PRN (Reason: if mom is ineffective after 24hrs)
docusate sodium 100 MG capsule
100 mg PO DAILY
clozapine 25 MG tablet
75 mg PO TID@0800,1200,1600
cholecalciferol (vitamin D3) [Vitamin D3] 400 UNITS tablet
400 units PO DAILY
tiotropium bromide [Spiriva with HandiHaler] 18 MCG capsule, w/inhalation device
1 puff inhalation R DAILY
levothyroxine [Synthroid] 25 mcg Tablet
25 mcg PO DAILY@0600
calcium carbonate 400 mg calcium (1,000 mg) Tablet,Chewable
1,000 mg PO Q8HPRN PRN (Reason: gas)
polyethylene glycol 3350 [HealthyLax] 17 gram Powder In Packet
17 g PO DAILY Qty: 30 0RF
Fleet Enema 19-7 gram/118 mL Enema
118 ml WI DAILYPRN PRN (Reason: if dulcolax is ineffective after 24hrs)
thiamine HCl (vitamin B1) 100 mg Tablet
100 mg PO DAILY Qty: 30 0RF
sennosides [senna] 8.6 mg Tablet
17.2 mg PO HS
lamotrigine 100 mg tablet
250 mg PO DAILY
fluoxetine 10 mg Tablet
10 mg PO DAILY
budesonide-formoterol [Symbicort] 80-4.5 mcg/actuation Hfa Aerosol Inhaler
2 inh INHALATION R [id number] PRN (Reason: SOB)
polyethylene glycol 3350 [Miralax] 17 gram powder in packet
17 g PO DAILY Qty: 14 0RF
tamsulosin [Flomax] 0.4 mg capsule
0.4 mg PO DAILY Qty: 30 0RF
Referrals:
John Walters I., [Family Provider, Internal Medicine]
Activity Restrictions/Additional Instructions:
Urine was negative for any infection. Follow-up with urology in their office for chronic bladder pain. Continue Flomax nightly.
Interventions
Interventions:
*Risk Screen - Suicide Last Done: 08/01/25 09:17
*General Assessment Last Done: 08/01/25 09:17
*Neglect/Abuse Screening Last Done: 08/01/25 09:17
*ED COVID-19 Vaccine History Last Done: 08/01/25 09:17
*ED Influenza Vaccine History Last Done: 08/01/25 09:17
PB-Wvtygu-Lvbdhlvydf Assessment Last Done: 08/01/25 09:20
Discharge Date and Time
Print Language: CYMRO
[2025-08-01 08:44] LABS: Urine Character Clear (Clear)
[2025-08-01 09:03] LABS: Urine Squamous Cell 16-20 /LPF (Few)
[2025-08-01 09:05] LABS: Urine White Cell 0-2 /HPF (0-5)
== END 2025-08-01 11:33 | disposition home or self-care (01) ==
LOC: EMR 07:05
PROVIDERS: Surgery Trauma Surgery; EMERGENCY PHYSICIAN Emergency Medicine; FAMILY PHYSICIAN Internal Medicine
DX: R39.82 Chronic bladder pain (principal); E78.00 Pure hypercholesterolemia, unspecified; F02.80 Dementia in other diseases classified elsewhere, unspecified severity, without behavioral disturbance, psychotic disturbance, mood disturbance, and anxiety; G30.9 Alzheimer's disease, unspecified; F17.200 Nicotine dependence, unspecified, uncomplicated; J44.9 Chronic obstructive pulmonary disease, unspecified
CPT/HCPCS: 99283; 80053; 81003; 81015; 85025; 87086